=== PATIENT | female | born 1960 | race Asian ===

== ENCOUNTER 2018-07-01 19:00 | Emergency (ER) | payer MEDICAID, OTHER ==
[~2018-07-01] VITALS: Ht 165.1 cm; Wt 81.6 kg
[~2018-07-01 19:00] MED LIST: AMLODIPINE BESY10 MG ORAL; APRESOLINE100 MG ORAL; ASPIRIN EC81 MG ORAL; ATORVASTATIN CA40 MG ORAL; CATAPRES0.3 MG ORAL; CLOPIDOGREL75 MG ORAL; GLIPIZIDE5 MG ORAL; ISOSORBIDE MONO30 M1 PO; JANUVIA100 MG ORAL; LISINOPRIL20 MG ORAL; METFORMIN HCL1000 M1 ORAL; METOPROLOL TAR100 M1 ORAL; NORVASC10 MG ORAL; VITAMIN D400 INTLU ORAL
[2018-07-01] MEDS ORDERED: Metoclopramide 10mg/2ml Inj IVP ONE (19:30)
[2018-07-01] MEDS ORDERED: LORazepam Inj 2mg/ml 1ml IV ONE (19:30)
[2018-07-01] MEDS ORDERED: Acetaminophen 500mg (ES) tab ORAL ONE (19:30)
[2018-07-01 19:44] VITALS: BP 112/50
--- NOTE | 2018-07-01 19:44 | Emergency Room Report ---
History of Present Illness General Chief Complaint: Dizziness Source: Patient, Family Member Present Illness HPI 58-year-old female presents ED for evaluation. Patient plating of dizziness and headache starting today. Headache is dull, frontal, 7 out of 10, nonradiating. Also states she feels lightheaded. Denies nausea or vomiting. Denies chest pain or shortness of breath. Daughter at bedside states that patient had argument with someone at work today and this likely triggered her symptoms. Does have history of anxiety and has presented like this multiple times. Currently does not take medication for anxiety. Denies alcohol or drug use. Denies SI or HI. No other aggravating relieving factors. No other associated symptoms Allergies: Coded Allergies: No Known Allergies (Unverified , 01/20/16) Patient History Past Medical History: DM, HTN Past Surgical History: none Pertinent Family History: none Social History: Denies: smoking, alcohol use, drug use Now: No Immunizations: UTD Reviewed Nursing Documentation: PMH: Agreed; PSxH: Agreed Nursing Documentation-PMH Past Medical History: No History, Except For Hx Cardiac Problems: Yes Hx Hypertension: Yes Hx Diabetes: Yes Hx Cancer: No Hx Gastrointestinal Problems: No Hx Neurological Problems: No Review of Systems All Other Systems: negative except mentioned in HPI Physical Exam Vital Signs Date Time Temp Pulse Resp B/P (MAP) Pulse Ox O2 Delivery O2 Flow Rate FiO2 07/01/18 19:09 97.9 72 17 133/52 98 Room Air Sp02 EP Interpretation: reviewed, normal General Appearance: alert, GCS 15, non-toxic, mild distress Head: normocephalic, atraumatic Eyes: bilateral eye normal inspection, bilateral eye PERRL ENT: hearing grossly normal, normal pharynx, no angioedema, normal voice Neck: full range of motion, supple, no meningismus, supple/symm/no masses Respiratory: chest non-tender, lungs clear, normal breath sounds, speaking full sentences Cardiovascular #1: regular rate, rhythm, no edema Cardiovascular #2: 2+ carotid (R), 2+ carotid (L), 2+ radial (R), 2+ radial (L) , 2+ dorsalis pedis (R), 2+ dorsalis pedis (L) Gastrointestinal: normal bowel sounds, non tender, soft, non-distended, no guarding, no rebound Rectal: deferred Genitourinary: normal inspection, no CVA tenderness Musculoskeletal: back normal, gait/station normal, normal range of motion, non- tender Neurologic: alert, oriented x3, responsive, motor strength/tone normal, sensory intact, speech normal Psychiatric: no suicidal/homicidal ideation, no delusions, anxious Reflexes: 3+ bicep (R), 3+ bicep (L), 3+ tricep (R), 3+ tricep (L), 3+ knee (R) , 3+ knee (L) Skin: normal color, no rash, warm/dry, well hydrated Lymphatic: no adenopathy Medical Decision Making Diagnostic Impression: Primary Impression: Anxiety Additional Impression: Dizziness ER Course Hospital Course 58 yo F presents with dizziness, headache, anxious after argument Differential diagnoses include: migraine, arrythmia, anxiety Clinical course Patient placed on stretcher. on case monitor. After initial history and physical I ordered labs, EKG, IVFs, ativan, reglan and tylenol labs reviewed- no leukocytosis, hemoglobin/hematocrit stable, minimal AG elevation EKG - NSR, no acute ischemic changes interpreted by me On reassessment patient feels better. Discussed findings with daughter. Patient does appear to have episodic anxiety. We'll prescribe low-dose Xanax. Patient has stable vitals, no focal neurological deficits. Safe for discharge or close outpatient follow-up. States she has a PMD we'll provide mental health referrals I. I feel this is a highly complex case requiring extensive working including EKG/Rhythm strip, Xray/CT/US, Blood/urine lab work, repeat exams while in ED, and administration of strong opiates/narcotics for pain control, admission to hospital or close patient follow up. Diagnosis - anxiety, dizziness Stable and discharged to home with Rx Xanax. Followup with PMD/psych. Return to ED if symptoms recur or worse Labs Test 07/01/18 19:20 07/01/18 20:34 White Blood Count 10.1 K/UL (4.8-10.8) Red Blood Count 4.09 M/UL (4.20-5.40) Hemoglobin 12.5 G/DL (12.0-16.0) Hematocrit 36.9 % (37.0-47.0) Mean Corpuscular Volume 90 FL (80-99) Mean Corpuscular Hemoglobin 30.7 PG (27.0-31.0) Mean Corpuscular Hemoglobin Concent 34.0 G/DL (32.0-36.0) Red Cell Distribution Width 11.5 % (11.6-14.8) Platelet Count 228 K/UL (150-450) Mean Platelet Volume 7.4 FL (6.5-10.1) Neutrophils (%) (Auto) 67.7 % (45.0-75.0) Lymphocytes (%) (Auto) 25.6 % (20.0-45.0) Monocytes (%) (Auto) 5.8 % (1.0-10.0) Eosinophils (%) (Auto) 0.5 % (0.0-3.0) Basophils (%) (Auto) 0.5 % (0.0-2.0) Sodium Level 137 MMOL/L (136-145) Potassium Level 3.2 MMOL/L (3.5-5.1) Chloride Level 97 MMOL/L (98-107) Carbon Dioxide Level 20 MMOL/L (21-32) Anion Gap 20 mmol/L (5-15) Blood Urea Nitrogen 22 mg/dL (7-18) Creatinine 1.0 MG/DL (0.55-1.30) Estimat Glomerular Filtration Rate 56.9 mL/min (>60) Glucose Level 186 MG/DL (74-106) Calcium Level 9.7 MG/DL (8.5-10.1) Total Bilirubin 0.2 MG/DL (0.2-1.0) Aspartate Amino Transf (AST/SGOT) 26 U/L (15-37) Alanine Aminotransferase (ALT/SGPT) 40 U/L (12-78) Alkaline Phosphatase 57 U/L (46-116) Total Protein 7.6 G/DL (6.4-8.2) Albumin 4.0 G/DL (3.4-5.0) Globulin 3.6 g/dL Albumin/Globulin Ratio 1.1 (1.0-2.7) Salicylates Level 4.1 ug/mL (2.8-20) Acetaminophen Level < 2 MCG/ML (10-30) Serum Alcohol 106 mg/dL Urine Opiates Screen Negative (NEGATIVE) Urine Barbiturates Screen Negative (NEGATIVE) Phencyclidine (PCP) Screen Negative (NEGATIVE) Urine Amphetamines Screen Negative (NEGATIVE) Urine Benzodiazepines Screen Negative (NEGATIVE) Urine Cocaine Screen Negative (NEGATIVE) Urine Marijuana (THC) Screen Negative (NEGATIVE) EKG Diagnostic Results Rate: normal Rhythm: NSR ST Segments: no acute changes ASA given to the pt in ED: No Rhythm Strip Diag. Results EP Interpretation: yes Rhythm: NSR, no PVC's, no ectopy Last Vital Signs Date Time Temp Pulse Resp B/P (MAP) Pulse Ox O2 Delivery O2 Flow Rate FiO2 07/01/18 19:09 97.9 72 17 133/52 98 Room Air Status: improved Disposition: HOME, SELF-CARE Condition: Stable Scripts Alprazolam* (XANAX*) 0.25 Mg Tablet 0.25 MG ORAL TID PRN for For Anxiety, #10 TAB Prov: Mateo Kerns MD 07/01/18 Mateo Kerns MD Jul 01, 2018 19:44
[2018-07-01 19:55] LABS: BASOPHILS % (AUTO) 0.5 % (0.0-2.0); EOSINOPHILS % (AUTO) 0.5 % (0.0-3.0); HEMATOCRIT 36.9 % (37.0-47.0); HEMOGLOBIN 12.5 G/DL (12.0-16.0); LYMPHOCYTES % (AUTO) 25.6 % (20.0-45.0); MEAN CORPUSCULAR VOLUME 90 FL (80-99); MONOCYTES % (AUTO) 5.8 % (1.0-10.0); NEUTROPHILS % (AUTO) 67.7 % (45.0-75.0); PLATELET COUNT 228 K/UL (150-450); RED BLOOD COUNT 4.09 M/UL (4.20-5.40); RED CELL DISTRIBUTION WIDTH 11.5 % (11.6-14.8); WHITE BLOOD COUNT 10.1 K/UL (4.8-10.8)
[2018-07-01 20:07] LABS: ANION GAP 20 mmol/L (5-15); BLOOD UREA NITROGEN 22 mg/dL (7-18); CALCIUM 9.7 MG/DL (8.5-10.1); CARBON DIOXIDE 20 MMOL/L (21-32); CHLORIDE 97 MMOL/L (98-107); POTASSIUM 3.2 MMOL/L (3.5-5.1); SODIUM 137 MMOL/L (136-145)
[2018-07-01 20:11] LABS: ALANINE AMINOTRANSFERASE 40 U/L (12-78); ALBUMIN/GLOBULIN RATIO 1.1 (1.0-2.7); ALKALINE PHOSPHATASE 57 U/L (46-116); ASPARTATE AMINO TRANSFERASE 26 U/L (15-37); BILIRUBIN,TOTAL 0.2 MG/DL (0.2-1.0)
[2018-07-01] MEDS ORDERED: ALPRAZOLAM0.25 MG ORAL (20:42)
[2018-07-01 21:20] VITALS: BP 112/50
== END 2018-07-01 21:18 | disposition home or self-care (01) ==
LOC: EMR 19:21
DX: F41.9 Anxiety disorder, unspecified (principal); R42 Dizziness and giddiness; I10 Essential (primary) hypertension; E11.9 Type 2 diabetes mellitus without complications
CPT/HCPCS: 36415; 80053; 80307; 80329; 85025; 96374; 96375; 99284; J2765; J7040; 82962; 93005

== ENCOUNTER 2018-11-08 20:10 | Emergency (ER) | payer MEDICAID ==
[~2018-11-08] VITALS: Ht 157.5 cm; Wt 70.3 kg
[~2018-11-08 20:10] MED LIST changes: +ALPRAZOLAM0.25 MG ORAL
[2018-11-08 20:23] VITALS: BP 172/71
--- NOTE | 2018-11-08 20:30 | NUR ---
ED Nurse Note: Patient walked into ED c/o rash on her back and abdomen, itching for 3 days.
[2018-11-08] MEDS ORDERED: DIPHENHYDRAMINE25 M1 ORAL (20:32)
[2018-11-08] MEDS ORDERED: PREDNISONE20 MG ORAL (20:32)
[2018-11-08 20:39] VITALS: BP 172/71
--- NOTE | 2018-11-08 20:42 | NUR ---
ER DISCHARGE NOTE: Patient is cleared to be discharged per ERMD DR HALE, pt is aox4, on room air, with stable vital signs. pt was given dc and prescription instructions, pt was able to verbalize understanding, pt id band removed without complications. pt is able to ambulate with steady gait. pt took all belongings.
--- NOTE | 2018-11-08 22:24 | Emergency Room Report ---
History of Present Illness General Chief Complaint: Skin Rash/Abscess Source: Patient Present Illness Allergies: Coded Allergies: No Known Allergies (Unverified , 01/20/16) Nursing Documentation-H Past Medical History: No History, Except For Hx Cardiac Problems: Yes Hx Hypertension: Yes Hx Diabetes: Yes Hx Cancer: No Hx Gastrointestinal Problems: No Hx Neurological Problems: No Physical Exam Vital Signs Date Time Temp Pulse Resp B/P (MAP) Pulse Ox O2 Delivery O2 Flow Rate FiO2 11/08/18 20:23 98.2 76 15 172/71 (104) 96 Room Air Medical Decision Making Diagnostic Impression: Primary Impression: Allergic reaction Last Vital Signs Date Time Temp Pulse Resp B/P (MAP) Pulse Ox O2 Delivery O2 Flow Rate FiO2 11/08/18 20:39 98.2 15 172/71 96 Room Air 11/08/18 20:23 76 Status: improved Disposition: HOME, SELF-CARE Condition: Stable Scripts Diphenhydramine Hcl* (DIPHENHYDRAMINE HCL*) 25 Mg Capsule 25 MG ORAL Q6H PRN for Itching for 5 Days, #30 CAP 0 Refills Prov: Mateo Kerns MD 11/08/18 Prednisone* (PREDNISONE*) 20 Mg Tablet 40 MG ORAL DAILY, #10 TAB Prov: Mateo Kerns MD 11/08/18 Referrals: Anuja Kat [facility] Patient Instructions: Pruritus Mateo Kerns MD Nov 08, 2018 22:24
== END 2018-11-08 20:39 | disposition home or self-care (01) ==
LOC: EMR 20:29
DX: T78.40XA Allergy, unspecified, initial encounter (principal); X58.XXXA Exposure to other specified factors, initial encounter; E11.9 Type 2 diabetes mellitus without complications; I10 Essential (primary) hypertension
CPT/HCPCS: 99282

== ENCOUNTER 2019-12-15 12:33 | Inpatient (IN) | payer MEDICAID ==
[~2019-12-15] VITALS: Ht 157.5 cm; Wt 70.2 kg
[~2019-12-15 12:33] MED LIST changes: +DIPHENHYDRAMINE25 M1 ORAL; +PREDNISONE20 MG ORAL
[2019-12-15] MEDS ORDERED: Enalaprilat 2.5mg/2ml Inj IV ONE (12:45)
--- NOTE | 2019-12-15 12:45 | NUR ---
ED Nurse Note: Pt ambulted to ED c/o dizziness and nausea onset yesterday. Reports retching and weakness, denies vomiting. Pt is AOx4 noted with generalized weakness, speaks in ukrainian, placed on bed, hooked to activities concierge.
--- NOTE | 2019-12-15 12:58 | NUR ---
ED Nurse Note: Latest BP: 166/55, HR 64.
--- NOTE | 2019-12-15 13:07 | NUR ---
ED Nurse Note: Pt taken to CT.
[2019-12-15 13:08] VITALS: BP 205/78
--- NOTE | 2019-12-15 13:16 | NUR ---
ED Nurse Note: pt returned from CT on stable condition.
[2019-12-15 13:19] LABS: BASOPHILS % (AUTO) 0.7 % (0.0-2.0); EOSINOPHILS % (AUTO) 1.9 % (0.0-3.0); HEMATOCRIT 44.2 % (37.0-47.0); LYMPHOCYTES % (AUTO) 28.7 % (20.0-45.0); MEAN CORPUSCULAR VOLUME 90 FL (80-99); MONOCYTES % (AUTO) 7.9 % (1.0-10.0); NEUTROPHILS % (AUTO) 60.8 % (45.0-75.0); PLATELET COUNT 241 K/UL (150-450); RED BLOOD COUNT 4.92 M/UL (4.20-5.40); WHITE BLOOD COUNT 6.8 K/UL (4.8-10.8)
[2019-12-15 13:35] LABS: ANION GAP 7 mmol/L (5-15); BLOOD UREA NITROGEN 11 mg/dL (7-18); CALCIUM 9.4 MG/DL (8.5-10.1); CARBON DIOXIDE 30 MMOL/L (21-32); CHLORIDE 100 MMOL/L (98-107); CREATININE 0.8 MG/DL (0.55-1.30); POTASSIUM 3.7 MMOL/L (3.5-5.1); SODIUM 137 MMOL/L (136-145)
[2019-12-15 13:48] LABS: ALANINE AMINOTRANSFERASE 43 U/L (12-78); ALBUMIN 3.8 G/DL (3.4-5.0); ALKALINE PHOSPHATASE 73 U/L (46-116); ASPARTATE AMINO TRANSFERASE 24 U/L (15-37); BILIRUBIN,TOTAL 0.4 MG/DL (0.2-1.0)
--- NOTE | 2019-12-15 13:55 | Diagnostic Imaging Report ---
Indications: Recent onset of nausea, retching, vertigo Technique: Spiral acquisitions obtained through the brain. Angled axial and coronal 5 x 5 mm slices were reconstructed. Total dose length product 992 mGycm. CTDI vol(s) 53 mGy. Dose reduction achieved using automated exposure control Comparison: None. Findings: There is mild age-related enlargement of the ventricles and extra axial CSF spaces. There is minimal periventricular deep white matter low-attenuation, consistent with chronic microvascular ischemic changes. Visualized orbits and sinuses are unremarkable. Normal farrar-white differentiation. Intact calvarium. The mastoids are clear. Visualized sinuses are unremarkable. Impression: Mild age-related changes. Negative for acute intracranial bleed or mass effect. The CT scanner at [facility] is accredited by the [employer] and the scans are performed using protocols designed to limit radiation exposure to as low as reasonably achievable to attain images of sufficient resolution adequate for diagnostic evaluation.
[2019-12-15 14:08] LABS: BILIRUBIN, URINE NEGATIVE (NEGATIVE); COLOR,URINE PALE YELLOW; GLUCOSE, URINE (UA) 4+ (NEGATIVE); KETONES,URINE NEGATIVE (NEGATIVE); LEUKOCYTE ESTERASE ,URINE NEGATIVE (NEGATIVE); NITRITE,URINE NEGATIVE (NEGATIVE); PH,URINE 7 (4.5-8.0); PROTEIN,URINE 2+ (NEGATIVE); UROBILINOGEN,URINE NORMAL MG/DL (0.0-1.0)
[2019-12-15 14:09] LABS: APPEARANCE,URINE CLEAR
[2019-12-15] MEDS ORDERED: Aspirin Baby 81mg ORAL ONE (15:00)
[2019-12-15 15:12] VITALS: BP 143/67
[2019-12-15] MEDS ORDERED: Meclizine 25mg tab ORAL ONE (15:15)
--- NOTE | 2019-12-15 15:15 | Emergency Room Report ---
History of Present Illness General Chief Complaint: Dizziness Source: Patient (Channing Ellison MD) Present Illness HPI Patient is a 59-year-old female present after increased dizziness and generalized weakness. Started yesterday. Reports of increased spinning sensation. Had not been having any chest discomfort or shortness of breath. Prior history of type 2 diabetes. Denies prior cardiac conditions. Associated nausea without any vomiting. Denies any recent trauma. No associated extremity weakness. Has been having increased spinning and nausea. No prior history of CVA. Had recently been had not been having any fever. (Channing Ellison MD) Allergies: Coded Allergies: No Known Allergies (Unverified , 01/20/16) COVID-19 Screening Contact w/high risk pt: No Experienced COVID-19 symptoms?: No COVID-19 Testing performed QC MANAGER: No (Channing Ellison MD) Patient History Past Medical History: see triage record Now: No Reviewed Nursing Documentation: PMH: Agreed; PSxH: Agreed (Channing Ellison MD) Nursing Documentation-PMH Hx Cardiac Problems: Yes Hx Hypertension: Yes Hx Diabetes: Yes Hx Cancer: No Hx Gastrointestinal Problems: No Hx Neurological Problems: No (Channing Ellison MD) Review of Systems All Other Systems: negative except mentioned in HPI (Channing Ellison MD) Physical Exam Vital Signs Date Time Temp Pulse Resp B/P (MAP) Pulse Ox O2 Delivery O2 Flow Rate FiO2 12/15/19 12:34 98.1 65 19 205/78 (120) 94 Room Air Sp02 EP Interpretation: reviewed, normal General Appearance: normal inspection, well appearing, no apparent distress, alert, GCS 15, non-toxic Head: normocephalic, atraumatic ENT: normal ENT inspection, hearing grossly normal, normal voice Neck: normal inspection, full range of motion, supple, no bony tend Respiratory: normal inspection, lungs clear, normal breath sounds, no respiratory distress, no retraction, no wheezing Cardiovascular #1: regular rate, rhythm, no edema Gastrointestinal: normal inspection, normal bowel sounds, non tender, soft, no guarding, no hernia Genitourinary: no CVA tenderness Musculoskeletal: normal inspection, back normal, normal range of motion Neurologic: alert, motor strength/tone normal, election assistant III-XII nml as tested, oriented x3, responsive, speech normal, normal inspection Psychiatric: normal inspection, judgement/insight normal, mood/affect normal (Channing Ellison MD) Medical Decision Making Diagnostic Impression: Primary Impression: Uncontrolled diabetes mellitus Additional Impression: Dizziness ER Course Patient presented for dizziness. Differential diagnosis include was not limited to CVA, peripheral vertigo, presyncope among others. Because of complexity of patient's case laboratory tests and imaging studies were ordered. EKG interpreted by me showed normal sinus rhythm with a rate of 62 with flattening to the T waves in the lateral and high lateral areas. Patient was given aspirin as well as medications for her nausea. Patient started on IV fluids due to high blood sugar. Patient reports being compliant with her medications. I did discuss the patient's case with her daughter who states that patient had been compliant with medications and was having no chest discomfort or palpitations at this time. Given the patient's abnormal EKG I feel the patient requires further inpatient work-up. Patient was endorsed to Dr. Hartley pending authorization and final disposition Labs Test 12/15/19 12:55 12/15/19 13:55 White Blood Count 6.8 K/UL (4.8-10.8) Red Blood Count 4.92 M/UL (4.20-5.40) Hemoglobin 15.0 G/DL (12.0-16.0) Hematocrit 44.2 % (37.0-47.0) Mean Corpuscular Volume 90 FL (80-99) Mean Corpuscular Hemoglobin 30.4 PG (27.0-31.0) Mean Corpuscular Hemoglobin Concent 33.8 G/DL (32.0-36.0) Red Cell Distribution Width 12.0 % (11.6-14.8) Platelet Count 241 K/UL (150-450) Mean Platelet Volume 7.5 FL (6.5-10.1) Neutrophils (%) (Auto) 60.8 % (45.0-75.0) Lymphocytes (%) (Auto) 28.7 % (20.0-45.0) Monocytes (%) (Auto) 7.9 % (1.0-10.0) Eosinophils (%) (Auto) 1.9 % (0.0-3.0) Basophils (%) (Auto) 0.7 % (0.0-2.0) Prothrombin Time 10.9 SEC (9.30-11.50) Prothromb Time International Ratio 1.0 (0.9-1.1) Activated Partial Thromboplast Time 28 SEC (23-33) D-Dimer 0.25 mg/L FEU (0.00-0.49) Sodium Level 137 MMOL/L (136-145) Potassium Level 3.7 MMOL/L (3.5-5.1) Chloride Level 100 MMOL/L (98-107) Carbon Dioxide Level 30 MMOL/L (21-32) Anion Gap 7 mmol/L (5-15) Blood Urea Nitrogen 11 mg/dL (7-18) Creatinine 0.8 MG/DL (0.55-1.30) Estimat Glomerular Filtration Rate > 60 mL/min (>60) Glucose Level 337 MG/DL (74-106) Calcium Level 9.4 MG/DL (8.5-10.1) Total Bilirubin 0.4 MG/DL (0.2-1.0) Aspartate Amino Transf (AST/SGOT) 24 U/L (15-37) Alanine Aminotransferase (ALT/SGPT) 43 U/L (12-78) Alkaline Phosphatase 73 U/L (46-116) Troponin I 0.000 ng/mL (0.000-0.056) Total Protein 7.5 G/DL (6.4-8.2) Albumin 3.8 G/DL (3.4-5.0) Globulin 3.7 g/dL Albumin/Globulin Ratio 1.0 (1.0-2.7) Thyroid Stimulating Hormone (TSH) 0.409 uiU/mL (0.358-3.740) Urine Color Pale yellow Urine Appearance Clear Urine pH 7 (4.5-8.0) Urine Specific [place] 1.010 (1.005-1.035) Urine Protein 2+ (NEGATIVE) Urine Glucose (UA) 4+ (NEGATIVE) Urine Ketones Negative (NEGATIVE) Urine Blood 1+ (NEGATIVE) Urine Nitrite Negative (NEGATIVE) Urine Bilirubin Negative (NEGATIVE) Urine Urobilinogen Normal MG/DL (0.0-1.0) Urine Leukocyte Esterase Negative (NEGATIVE) Urine RBC 2-4 /HPF (0 - 2) Urine WBC 2-4 /HPF (0 - 2) Urine Squamous Epithelial Cells Occasional /LPF Urine Bacteria Few /HPF (NONE) (Channing Ellison MD) ER Course Assumed care of the patient from the previous provider at approximately 1500 hrs. Please refer to initial note for full history and physical exam. Briefly, 59-year-old female history of diabetes hypertension presented with dizziness and weakness. Nonspecific T wave changes on lateral leads on EKG and slightly prolonged QTC. Patient received aspirin and magnesium. Arrives with elevated blood pressures greater than 200 systolic which were treated and have improved. Blood sugar was elevated and the patient received insulin. She will be admitted for uncontrolled diabetes, hypertensive urgency, EKG changes. Stable for telemetry. Admitted to panel physician, Dr. Sam. (Elio Hartley MD) EKG Diagnostic Results Rate: normal - 62 Rhythm: NSR ST Segments: other - Nonspecific inferior ST changes (Channing Ellison MD) Last Vital Signs Date Time Temp Pulse Resp B/P (MAP) Pulse Ox O2 Delivery O2 Flow Rate FiO2 12/15/19 13:14 166/55 12/15/19 13:08 98.1 19 94 Room Air 12/15/19 13:08 65 Status: unchanged (Channing Ellison MD) Disposition: ADMITTED INPATIENT Condition: Stable Referrals: [facility]ERR[facility] (PCP) Channing Ellison MD Dec 15, 2019 15:15 Elio Hartley MD Dec 15, 2019 15:57
--- NOTE | 2019-12-15 15:30 | NUR ---
ED Nurse Note: may offfer snacks to pt per Dr. Ellison.
[2019-12-15] MEDS ORDERED: ISOSORBIDE MONO30 M1 PO (16:17)
[2019-12-15] MEDS ORDERED: HYDROCHLOROTHIA25 MG ORAL (16:17)
[2019-12-15] MEDS ORDERED: LISINOPRIL20 MG ORAL (16:17)
[2019-12-15] MEDS ORDERED: ATORVASTATIN CA40 MG ORAL (16:17)
[2019-12-15] MEDS ORDERED: ASPIRIN-LOW81 MG ORAL (16:17)
[2019-12-15] MEDS ORDERED: NORMODYNE100 MG ORAL (16:17)
[2019-12-15] MEDS ORDERED: GLUCOTROL5 MG ORAL (16:17)
[2019-12-15] MEDS ORDERED: JANUVIA100 MG ORAL (16:17)
[2019-12-15] MEDS ORDERED: Morphine Sulfate 2mg/ml Inj(IV/IM USE ONLY) IVP PRN (17:00)
[2019-12-15] MEDS ORDERED: Nitroglycerin Subl 0.4mg tab SL PRN (17:00)
--- NOTE | 2019-12-15 17:02 | History & Physical ---
History and Physical History & Physicial IM/PULM H&P CC: Dizziness and CP HPI: 59 F smoker h/o DM2, HTN, HL p/w sudden onset dizziness last night and vague chest discomfort. In the ER she was AFVSS x for elevated BP on RA, lab w/ u was unremarkable but ECG demonstrated anterolateral TW changes. Her dizziness has resolved, no further CP, no SOB, no cough, no wheezing, no FC, no NVDC, no abd pain or urinary complaints. She recieved ASA and IV Enalapril in the ER. 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 PMH: HTN, HL, DM2 PSH: None ALL: NKDA Active Scripts Medications Dose Route/Sig Max Daily Dose Days Date Category Atorvastatin Calcium* (Atorvastatin Calcium) 40 Mg Tablet 40 Mg ORAL BEDTIME 12/15/19 Reported Januvia (Sitagliptin Phosphate) 100 Mg Tablet 100 Mg ORAL DAILY 12/15/19 Reported Labetalol HCl 100 Mg Tablet 100 Mg ORAL EVERY 12 HOURS 12/15/19 Reported Hydrochlorothiazide* (Hydrochlorothiazide) 25 Mg Tablet 25 Mg ORAL DAILY 12/15/19 Reported Lisinopril* (Lisinopril) 20 Mg Tablet 20 Mg ORAL DAILY 12/15/19 Reported Aspirin EC (Aspirin) 81 Mg Tablet.dr 81 Mg ORAL DAILY 12/15/19 Reported Isosorbide Mononitrate Er (Isosorbide Mononitrate) 30 Mg Tab.er.24h 30 Mg PO 12/15/19 Reported Glucotrol* (Glipizide) 5 Mg Tablet 5 Mg ORAL ACBREAKFAST 12/15/19 Reported Diphenhydramine Hcl* (Diphenhydramine HCl) 25 Mg Capsule 25 Mg ORAL Q6H PRN 5 11/08/18 Rx Prednisone* (Prednisone) 20 Mg Tablet 40 Mg ORAL DAILY 11/08/18 Rx Xanax* (Alprazolam) 0.25 Mg Tablet 0.25 Mg ORAL TID PRN 07/01/18 Rx Norvasc (Amlodipine Besylate) 10 Mg Tablet 10 Mg ORAL DAILY 02/23/16 Rx Metformin Hcl* (Metformin HCl) 1,000 Mg Tablet 1,000 Mg ORAL BID 30 02/23/16 Rx Januvia (Sitagliptin Phosphate) 100 Mg Tablet 100 Mg ORAL DAILY 02/23/16 Rx SHX: + 1 PPD tob, no drugs or EtOH, from [place], , supportive family FHX: N/C ROS: Negative other than HPI PE: Last 24 Hour Vital Signs Date Time Temp Pulse Resp B/P (MAP) Pulse Ox O2 Delivery O2 Flow Rate FiO2 12/15/19 15:12 98.1 72 21 143/67 98 Room Air 12/15/19 13:14 166/55 12/15/19 13:08 98.1 19 205/78 94 Room Air 12/15/19 13:08 65 19 Room Air 12/15/19 12:34 98.1 65 19 205/78 (120) 94 Room Air NAD, AAOx3 NC/AT, OPC c MMM Supple s LAD or JVD CTA s W/R/R RRR s M/R/G S/NT/ND c NABS No C/C/E CT HEAD: Impression: Mild age-related changes. Negative for acute intracranial bleed or mass effect. ECF: NSR @ 62, I,II ST dep, V1-V2 ST elevation Laboratory Tests Test 12/15/19 12:55 12/15/19 13:55 White Blood Count 6.8 K/UL (4.8-10.8) Red Blood Count 4.92 M/UL (4.20-5.40) Hemoglobin 15.0 G/DL (12.0-16.0) Hematocrit 44.2 % (37.0-47.0) Mean Corpuscular Volume 90 FL (80-99) Mean Corpuscular Hemoglobin 30.4 PG (27.0-31.0) Mean Corpuscular Hemoglobin Concent 33.8 G/DL (32.0-36.0) Red Cell Distribution Width 12.0 % (11.6-14.8) Platelet Count 241 K/UL (150-450) Mean Platelet Volume 7.5 FL (6.5-10.1) Neutrophils (%) (Auto) 60.8 % (45.0-75.0) Lymphocytes (%) (Auto) 28.7 % (20.0-45.0) Monocytes (%) (Auto) 7.9 % (1.0-10.0) Eosinophils (%) (Auto) 1.9 % (0.0-3.0) Basophils (%) (Auto) 0.7 % (0.0-2.0) Prothrombin Time 10.9 SEC (9.30-11.50) Prothromb Time International Ratio 1.0 (0.9-1.1) Activated Partial Thromboplast Time 28 SEC (23-33) D-Dimer 0.25 mg/L FEU (0.00-0.49) Sodium Level 137 MMOL/L (136-145) Potassium Level 3.7 MMOL/L (3.5-5.1) Chloride Level 100 MMOL/L (98-107) Carbon Dioxide Level 30 MMOL/L (21-32) Anion Gap 7 mmol/L (5-15) Blood Urea Nitrogen 11 mg/dL (7-18) Creatinine 0.8 MG/DL (0.55-1.30) Estimat Glomerular Filtration Rate > 60 mL/min (>60) Glucose Level 337 MG/DL (74-106) H Calcium Level 9.4 MG/DL (8.5-10.1) Total Bilirubin 0.4 MG/DL (0.2-1.0) Aspartate Amino Transf (AST/SGOT) 24 U/L (15-37) Alanine Aminotransferase (ALT/SGPT) 43 U/L (12-78) Alkaline Phosphatase 73 U/L (46-116) Troponin I 0.000 ng/mL (0.000-0.056) Total Protein 7.5 G/DL (6.4-8.2) Albumin 3.8 G/DL (3.4-5.0) Globulin 3.7 g/dL Albumin/Globulin Ratio 1.0 (1.0-2.7) Thyroid Stimulating Hormone (TSH) 0.409 uiU/mL (0.358-3.740) Urine Color Pale yellow Urine Appearance Clear Urine pH 7 (4.5-8.0) Urine Specific [place] 1.010 (1.005-1.035) Urine Protein 2+ (NEGATIVE) H Urine Glucose (UA) 4+ (NEGATIVE) H Urine Ketones Negative (NEGATIVE) Urine Blood 1+ (NEGATIVE) H Urine Nitrite Negative (NEGATIVE) Urine Bilirubin Negative (NEGATIVE) Urine Urobilinogen Normal MG/DL (0.0-1.0) Urine Leukocyte Esterase Negative (NEGATIVE) Urine RBC 2-4 /HPF (0 - 2) H Urine WBC 2-4 /HPF (0 - 2) Urine Squamous Epithelial Cells Occasional /LPF Urine Bacteria Few /HPF (NONE) ASSESSMENT: * Dizziness * Atypical CP with ECG changes * DM2 with elevated BS * HTN * HL * Likely CAD and CHF * Current daily smoker PLAN: * Admit to TELE * R/O ACS with serial ECG/trop * TTE * Cardiology eval * ASA * Continue Norvasc, HCTZ, Imdur, Atorva, Lisin, Labetolol * PRN NTG * PRN MSO4 * Carotid duplex * Neuro eval (if available) * Check orthostatics * Continue Glipizide, Januvia, Hold MFM, + SSI, ENDO eval * Monitor volumes and renal function * DVT Px: Hep SQ Diego Patterson MD, FCCP Diego Patterson MD Dec 15, 2019 17:02
[2019-12-15 17:09] VITALS: BP 144/58
--- NOTE | 2019-12-15 17:15 | NUR ---
ED Nurse Note: US tech at bedside.
--- NOTE | 2019-12-15 17:30 | NUR ---
ED Nurse Note: dinner tray offered to pt.
--- NOTE | 2019-12-15 18:06 | Diagnostic Imaging Report ---
EXAM: US Pelvis Transabdominal, Complete CLINICAL HISTORY: PAIN TECHNIQUE: Real-time complete transabdominal pelvic ultrasound with image documentation. COMPARISON: No relevant prior studies available. FINDINGS: Uterus/cervix: Study limited due to uterine retroversion and uterine atrophy, limiting uterine evaluation. Trace cervical fluid of uncertain significance, correlate with pelvic exam and consider outpatient MRI pelvis without and with IV contrast to further characterize poorly evaluated uterus. Uterus 6.8 x 5.4 x 4 cm Normal endometrial stripe thickness. No myometrial mass. Right ovary: Study also limited due to nonvisualization of the ovaries bilaterally. Left ovary: See above. Free fluid: No free fluid. Bladder: Unremarkable as visualized. Wall is normal thickness for degree of distention. IMPRESSION: 1. Study limited due to uterine retroversion and uterine atrophy, limiting uterine evaluation. 2. Study also limited due to nonvisualization of the ovaries bilaterally. 3. Trace cervical fluid of uncertain significance, correlate with pelvic exam and consider outpatient MRI pelvis without and with IV contrast to further characterize poorly evaluated uterus. 4. Otherwise no acute abnormality definitively identified to account for patient presentation.
--- NOTE | 2019-12-15 18:07 | Diagnostic Imaging Report ---
EXAM: US Pelvis Transvaginal CLINICAL HISTORY: PAIN TECHNIQUE: Real-time transvaginal pelvic ultrasound with image documentation. Transvaginal imaging was used for better evaluation of the endometrium and adnexa. COMPARISON: No relevant prior studies available. FINDINGS: Uterus/cervix: Study limited due to uterine retroversion and uterine atrophy, limiting uterine evaluation. Trace cervical fluid of uncertain significance, correlate with pelvic exam and consider outpatient MRI pelvis without and with IV contrast to further characterize poorly evaluated uterus. Uterus 6.8 x 5.4 x 4 cm Normal endometrial stripe thickness. No myometrial mass. Right ovary: Study also limited due to nonvisualization of the ovaries bilaterally. Left ovary: See above. Free fluid: No free fluid. Bladder: Empty bladder which cannot be evaluated with this probe. IMPRESSION: 1. Study limited due to uterine retroversion and uterine atrophy, limiting uterine evaluation. 2. Study also limited due to nonvisualization of the ovaries bilaterally. 3. Trace cervical fluid of uncertain significance, correlate with pelvic exam and consider outpatient MRI pelvis without and with IV contrast to further characterize poorly evaluated uterus. 4. Otherwise no acute abnormality definitively identified to account for patient presentation.
--- NOTE | 2019-12-15 18:11 | NUR ---
ED Nurse Note: US tech at bedside for carotid us.
--- NOTE | 2019-12-15 18:23 | NUR ---
ED Nurse Note: report given to Radhika RN in Telemetry Unit.
--- NOTE | 2019-12-15 18:46 | Diagnostic Imaging Report ---
EXAM: US Duplex Bilateral Extracranial Arteries CLINICAL HISTORY: DIZZY TECHNIQUE: Real-time duplex ultrasound scan of the extracranial arteries integrating B-mode two-dimensional vascular structure, Doppler spectral analysis and color flow Doppler imaging. COMPARISON: No relevant prior studies available. FINDINGS: Right common carotid artery: No occlusion or significant stenosis on color flow and spectral Doppler imaging. Right internal carotid artery: There is some plaque in the bilateral carotid bifurcations extending to the proximal internal and external carotid arteries. Right external carotid artery: See above. Right vertebral artery: Antegrade flow. Right ICA/CCA ratio: Within normal limits. Left common carotid artery: No occlusion or significant stenosis on color flow and spectral Doppler imaging. Left internal carotid artery: No occlusion or significant stenosis. Left external carotid artery: Peak systolic velocity in the left external carotid artery is 173 cm/s suggesting some narrowing. Left vertebral artery: Antegrade flow. Left ICA/CCA ratio: Within normal limits. Lymph nodes: Unremarkable. No lymphadenopathy. CAROTID STENOSIS REFERENCE USING SRU CRITERIA: Mild - <50% stenosis. ICA PSV is less than 125 cm/second and plaque or intimal thickening is visible. Moderate - 50-69% stenosis. ICA PSV is 125 to 230 cm/second and plaque is visible. Severe - 70-94% stenosis. ICA PSV is more than 230 cm/second and visible plaque with lumen narrowing is seen. Near occlusion - 95-99% stenosis. ICA PSV is variable and significant plaque with luminal narrowing is seen. Occluded - 100% stenosis. No flow identified. IMPRESSION: No hemodynamically significant stenosis in the carotid arteries. Antegrade flow in the vertebral arteries.
--- NOTE | 2019-12-15 18:48 | NUR ---
ED Nurse Note: Pt was transferred to Telemetry Unit under the care of Dr. Sam. Report given to BRIGHT Garrido in Tele Unit. All belongings sent with pt, pt was transferred on stable condition. Family aware of pt rtransfer.
--- NOTE | 2019-12-15 18:50 | NUR ---
NURSE NOTES: Patient received from ED, report from Rae NOVOA. Transferred to bed. new car inspector placed. Side rails up x 2. Bed alarm on. Call light within reach. Addendum: 12/15/19 at 1942 by Radhika García RN NURSE NOTES: Belongings checked.
--- NOTE | 2019-12-15 19:00 | NUR ---
NURSE NOTES: Received report from Radhika RN. Patient is alert and oriented x 4; patient is mostly Koran speaking but understand Estonian and is able to make needs known. Patient was awake comfortably in semi-fowlers. No signs of distress or pain noted, but is reporting dizziness. Patients IV site at right hand 20g S/L; Flushed and patent. No erythema or bleeding noted. Patient is on room air sating at 95%. Patients bed is in lowest position, brakes in place, and Call light with in reach. Side rails up x3 and padded. Patient is in yellow gown and socks for fall precaution, bed alarm is on, and educated to use call light to call for assistance. Will notify Dr. Sam of patients arrival on and of admission orders places by Dr. Patterson. Will continue to monitor.
[2019-12-15 20:00] VITALS: BP 154/60
[2019-12-15] MEDS ORDERED: LANTUS SOL100 UNIT/1 SUBQ (20:27)
--- NOTE | 2019-12-15 20:36 | NUR ---
NURSE NOTES: Notified Dr. Louis of patient arrival on and of Dr. Patterson's admission orders placed for the patient. Dr. aSm would not like to add orders at this time.
--- NOTE | 2019-12-15 21:00 | NUR ---
NURSE NOTES: Called pharmacy and spoke to Hola regarding patients request to try to use the Nicotine patch tomorrow instead of tonight. Pharmacy changed the patient Nicotine Patch to 0:900.
[2019-12-15] MEDS: Atorvastatin 20mg tab ORAL SCH (21:43)
[2019-12-15] MEDS: NovoLOG Insulin Flexpen SUBQ SCH (21:48)
[2019-12-16] VITALS: BP 165/65
[2019-12-16 04:00] VITALS: BP 166/64
--- NOTE | 2019-12-16 04:00 | NUR ---
NURSE NOTES: 12 lead EKG performed per Dr. Rosario Addendum: 12/16/19 at 0617 by Lucero De La O RN NURSE NOTES: 12 lead EKG performed per Dr. Yesenia watson
[2019-12-16 05:42] LABS: BASOPHILS % (AUTO) 0.7 % (0.0-2.0); EOSINOPHILS % (AUTO) 3.2 % (0.0-3.0); HEMATOCRIT 43.5 % (37.0-47.0); HEMOGLOBIN 14.6 G/DL (12.0-16.0); MEAN CORPUSCULAR VOLUME 90 FL (80-99); MONOCYTES % (AUTO) 7.6 % (1.0-10.0); NEUTROPHILS % (AUTO) 47.5 % (45.0-75.0); PLATELET COUNT 220 K/UL (150-450); RED BLOOD COUNT 4.82 M/UL (4.20-5.40); RED CELL DISTRIBUTION WIDTH 11.6 % (11.6-14.8)
[2019-12-16 05:43] LABS: ANION GAP 9 mmol/L (5-15); BLOOD UREA NITROGEN 14 mg/dL (7-18); CALCIUM 9.1 MG/DL (8.5-10.1); CARBON DIOXIDE 29 MMOL/L (21-32); CHLORIDE 103 MMOL/L (98-107); CREATININE 0.8 MG/DL (0.55-1.30); POTASSIUM 3.6 MMOL/L (3.5-5.1); SODIUM 140 MMOL/L (136-145)
[2019-12-16] MEDS: NovoLOG Insulin Flexpen SUBQ SCH ×4 (05:47→20:43)
[2019-12-16] MEDS: GlipiZIDE 5mg tab ORAL SCH (05:47)
--- NOTE | 2019-12-16 07:16 | NUR ---
NURSE HAND-OFF REPORT: Important Events on Shift: Patient was admitted. Patient Status: Stable Diet: Cardio Diet Pending Orders: [] Pending Results/Labs:[] Pending MD notification:[] Latest Vital Signs: Temperature 97.9 , Pulse 75 , B/P 166 /64 , Respiratory Rate 20 , O2 SAT 95 , Room Air, O2 Flow Rate . Vital Sign Comment: [] EKG Rhythm: Sinus Rhythm Rhythm change?: N MD Notified?: - MD Response: Latest Lim Fall Score: 55 Fall Risk: High Risk Safety Measures: Call light Within Reach, Bed Alarm Zone 1, Side Rails Side Rails x2, Bed position Low and Locked. Fall Precautions: Yellow Socks Yellow Gown Door Sign Patient Fall Education Report given to Leslye NOVOA.
--- NOTE | 2019-12-16 07:25 | NUR ---
NURSE NOTES: Received patient alert, awake and oriented x 4; patient is german speaking but able to speak and understand spanish. BSC @ bedside. Able to make needs known. No signs of acute resp distress or pain noted. PIV site at right hand 20g S/L; intact and patent. R/A. Bed is in lowest position, brakes in place, and Call light within reach. Side rails up x2. wearing yellow gown and socks for fall precaution, bed alarm is on, and educated to use call light to call for assistance. will cont to monitor.
[2019-12-16 08:00] VITALS: BP 169/67
[2019-12-16] MEDS: Lisinopril 20mg tab ORAL SCH (08:21)
[2019-12-16] MEDS: Imdur 30mg tab ORAL SCH (08:22)
[2019-12-16] MEDS: hydroCHLOROthiazide 25mg cap ORAL SCH (08:22)
[2019-12-16] MEDS: Aspirin EC 81mg tab ORAL SCH (08:27)
--- NOTE | 2019-12-16 08:46 | Pulmonology Progress Note ---
Cayla Varghese DISHTANK OPERATOR 12/16/19 0846: Subjective Allergies: Coded Allergies: No Known Allergies (Unverified , 01/20/16) Subjective denies CP, SOB on RA sat stable ECHO is being done at this time Objective Last 24 Hour Vital Signs Date Time Temp Pulse Resp B/P (MAP) Pulse Ox O2 Delivery O2 Flow Rate FiO2 12/16/19 08:22 61 169/67 12/16/19 08:22 169/67 12/16/19 08:22 61 169/67 12/16/19 08:21 169/67 12/16/19 04:00 97.9 75 20 166/64 (98) 95 12/16/19 04:00 61 12/16/19 00:00 64 12/16/19 00:00 98.1 64 20 165/65 (98) 95 12/15/19 21:44 64 145/60 12/15/19 21:34 Room Air 12/15/19 20:00 64 12/15/19 20:00 97.9 64 18 154/60 (91) 95 12/15/19 19:00 64 12/15/19 18:48 98.1 76 14 160/54 98 Room Air 12/15/19 17:09 98.1 72 12 144/58 97 Room Air 12/15/19 15:12 98.1 72 21 143/67 98 Room Air 12/15/19 13:14 166/55 12/15/19 13:08 98.1 19 205/78 94 Room Air 12/15/19 13:08 65 19 Room Air 12/15/19 12:34 98.1 65 19 205/78 (120) 94 Room Air Intake and Output 12/15/19 12/16/19 19:00 07:00 Output Total 1100 ml Balance -1100 ml Output Urine Total 1100 ml # Voids 3 General Appearance: no acute distress, other - A/A/O x 4 Koreaan speaking overweight female in NAD HEENT: normocephalic, atraumatic, anicteric, mucous membranes moist Respiratory: lungs clear, no respiratory distress, no accessory muscle use Cardiovascular: normal rate, regular rhythm Abdomen: soft, non tender - obese Extremities: no edema, pedal pulses normal Neurologic: alert, oriented x 3, responsive Musculoskeletal: normal muscle bulk Laboratory Tests 12/15/19 12:55: White Blood Count 6.8, Red Blood Count 4.92, Hemoglobin 15.0, Hematocrit 44.2, Mean Corpuscular Volume 90, Mean Corpuscular Hemoglobin 30.4, Mean Corpuscular Hemoglobin Concent 33.8, Red Cell Distribution Width 12.0, Platelet Count 241, Mean Platelet Volume 7.5, Neutrophils (%) (Auto) 60.8, Lymphocytes (%) (Auto) 28.7, Monocytes (%) (Auto) 7.9, Eosinophils (%) (Auto) 1.9, Basophils (%) (Auto ) 0.7, Prothrombin Time 10.9, Prothromb Time International Ratio 1.0, Activated Partial Thromboplast Time 28, D-Dimer 0.25, Sodium Level 137, Potassium Level 3.7, Chloride Level 100, Carbon Dioxide Level 30, Anion Gap 7, Blood Urea Nitrogen 11, Creatinine 0.8, Estimat Glomerular Filtration Rate > 60, Glucose Level 337H, Calcium Level 9.4, Total Bilirubin 0.4, Aspartate Amino Transf (AST/ SGOT) 24, Alanine Aminotransferase (ALT/SGPT) 43, Alkaline Phosphatase 73, Troponin I 0.000, Total Protein 7.5, Albumin 3.8, Globulin 3.7, Albumin/ Globulin Ratio 1.0, Thyroid Stimulating Hormone (TSH) 0.409 12/15/19 13:55: Urine Color Pale yellow, Urine Appearance Clear, Urine pH 7, Urine Specific [place] 1.010, Urine Protein 2+H, Urine Glucose (UA) 4+H, Urine Ketones Negative , Urine Blood 1+H, Urine Nitrite Negative, Urine Bilirubin Negative, Urine Urobilinogen Normal, Urine Leukocyte Esterase Negative, Urine RBC 2-4H, Urine WBC 2-4, Urine Squamous Epithelial Cells Occasional, Urine Bacteria Few 12/16/19 04:40: White Blood Count 7.0, Red Blood Count 4.82, Hemoglobin 14.6, Hematocrit 43.5, Mean Corpuscular Volume 90, Mean Corpuscular Hemoglobin 30.3, Mean Corpuscular Hemoglobin Concent 33.5, Red Cell Distribution Width 11.6, Platelet Count 220, Mean Platelet Volume 7.3, Neutrophils (%) (Auto) 47.5, Lymphocytes (%) (Auto) 41.0, Monocytes (%) (Auto) 7.6, Eosinophils (%) (Auto) 3.2H, Basophils (%) (Auto ) 0.7, Sodium Level 140, Potassium Level 3.6, Chloride Level 103, Carbon Dioxide Level 29, Anion Gap 9, Blood Urea Nitrogen 14, Creatinine 0.8, Estimat Glomerular Filtration Rate > 60, Glucose Level 301H, Calcium Level 9.1, Troponin I 0.000 Current Medications Medications (Trade) Dose Ordered Sig/[place] Route PRN Reason Start Time Stop Time Status Last Admin Dose Admin Amlodipine Besylate (Norvasc) 10 mg DAILY ORAL 12/16/19 09:00 01/15/20 08:59 12/16/19 08:22 Aspirin (Ecotrin) 81 mg DAILY ORAL 12/16/19 09:00 01/30/20 08:59 12/16/19 08:27 Atorvastatin Calcium (Lipitor) 40 mg BEDTIME ORAL 12/15/19 21:00 03/14/20 20:59 12/15/19 21:43 Dextrose (Dextrose 50%) 25 ml Q30M PRN IV Hypoglycemia 12/15/19 17:00 03/14/20 16:59 Dextrose (Dextrose 50%) 50 ml Q30M PRN IV Hypoglycemia 12/15/19 17:00 03/14/20 16:59 Glipizide (Glucotrol) 5 mg ACBREAKFAST ORAL 12/16/19 06:30 01/15/20 06:29 12/16/19 05:47 Hydrochlorothiazide (Hydrodiuril) 25 mg DAILY ORAL 12/16/19 09:00 01/15/20 08:59 12/16/19 08:22 Insulin Aspart (NovoLOG) BEFORE MEALS AND HS SUBQ 12/15/19 21:00 03/14/20 20:59 12/16/19 05:47 Isosorbide Mononitrate (Imdur) 30 mg DAILY ORAL 12/16/19 09:00 01/15/20 08:59 12/16/19 08:22 Labetalol HCl (Normodyne) 100 mg EVERY 12 HOURS ORAL 12/15/19 21:00 01/14/20 20:59 12/16/19 08:22 Lisinopril (PriniviL) 20 mg DAILY ORAL 12/16/19 09:00 01/15/20 08:59 12/16/19 08:21 Morphine Sulfate (Morphine Sulfate) 1 mg Q6H PRN IVP CP 12/15/19 17:00 12/22/19 16:59 Nicotine (Nicoderm) 1 patch Q24H TDERMAL 12/16/19 09:00 03/15/20 08:59 Nitroglycerin (Ntg) 0.4 mg Q5M PRN SL Prn Chest Pain 12/15/19 17:00 01/14/20 16:59 Ondansetron HCl (Zofran) 4 mg Q4H PRN IM Nausea & Vomiting 12/15/19 17:00 01/14/20 16:59 Sitagliptin Phosphate (Januvia) 100 mg DAILY ORAL 12/16/19 09:00 01/15/20 08:59 12/16/19 08:21 Assessment/Plan Assessment/Plan ASSESSMENT: * Dizziness * Atypical CP with ECG changes * DM2 with elevated BS/OOC * HTN with initial HTN urgency * HLD * Likely CAD and CHF * Current daily smoker PLAN: * in tele * serial troponin x2 negative, * TTE * cardiology eval pending * a/PLT with ASA * Continue a/HTN regimen, LA nitrite , statin : Labetalol, Norvasc, HCTZ, Imdur , Atorvastatin, Lisinopril, Labetalol- BP improving, optimize further as needed * PRN NTG * PRN MSO4 * Carotid duplex -> no significant stenosis * Neuro eval (if available) * Check orthostatics * Continue Glipizide, Januvia, Hold MFM, also SSI, ENDO eval, check HgA1c, diabetic diet * Monitor volumes and renal function * DVT Px: Hep SQ * personnel counselor on smoking cessation , started on Nicotine patch * dietary eval case discussed and evaluated by supervising physician Bry Sam MD 12/16/19 1315: Subjective Allergies: Coded Allergies: No Known Allergies (Unverified , 01/20/16) Assessment/Plan Assessment/Plan Patient seen and examined with DISHTANK OPERATOR and I agree with the above formulated assessment and plan. Cayla Varghese NP Dec 16, 2019 08:46 Bry Sam MD Dec 16, 2019 13:15
--- NOTE | 2019-12-16 09:28 | NUR ---
CASE MANAGEMENT:INITIAL REVIEW 59 YR OLD FEMALE FROM HOME CC;DIZZINESS SI;UNCONTROLLED DM. DIZZINESS. 98.1 65 19 205/78 94% ON RA BG 337 UA+ PROTEIN, GLUCOSE, BLOOD, RBC HEAD CT ~ Mild age-related changes. Negative for acute intracranial bleed or mass effect. TRANSVAGINAL US ~ no acute abnormality definitively identified to account for patient presentation. PELVIS US ~ no acute abnormality definitively identified to account for patient presentation. BILAT CAROTID DUPLEX ~ No hemodynamically significant stenosis in the carotid arteries. Antegrade flow in the vertebral arteries. IS;VASOTEC IV IVF NS BOLUS ASA PO ONCE MAG SULFATE IV ANTIVERT PO ADMITTED TO TELE 12/15/19 @ 1713 TELEMETRY STATUS DCP;FROM HOME Addendum: 12/16/19 at 1002 by WILL NEUMANN LVN LVN MET OBS IN INTERQUAL
--- NOTE | 2019-12-16 11:18 | NUR ---
CARDIOLOGY ECHO REPORT : Normal left ventricular chamber size, systolic function and wall motion . Left ventricular ejection fraction estimated to be 60-65 %. Mild left ventricular hypertrophy by 2-D. Anterior Echo-free space, may be due to pericardial fat or effusion. All other cardiac chamber sizes are within normal limits. Calcification of aortic valve with adequate cusp excursion. Thickened mitral valve leaflets with normal excursion. Mitral annulus and aortic root calcification. Pulmonic valve not well visualized. Normal tricuspid valve structure. IVC at normal size with physiologic collapse. A color flow and spectral Doppler study was performed and revealed: Moderate aortic regurgitation. Mild to moderate mitral regurgitation. Mitral diastolic velocities suggest reduced left ventricular relaxation c/w mild LV diastolic dysfunction (Grade I ). Mild tricuspid regurgitation. Tricuspid systolic velocities suggests peak right ventricular systolic pressure of 44 mmHg,consistent with mild pulmonary hypertension. Pulmonic regurgitation present.
--- NOTE | 2019-12-16 11:35 | NUR ---
NURSE NOTES: PATIENT SEEN BY PHYSICAL THERAPIST AND REPORTED THAT PATIENT IS EXPERIENCING POSTURAL HYPOTENSION. DOES NOT SUGGESTED TO BE ON A COMMODE FOR THE MOMENT. HIGH RISK OF FALLS. WILL CONT TO MONITOR.
[2019-12-16 12:00] VITALS: BP 156/67
--- NOTE | 2019-12-16 14:08 | Diagnostic Imaging Report ---
EXAM: XR Chest, 1 View CLINICAL HISTORY: DYSPNEA TECHNIQUE: Frontal view of the chest. COMPARISON: Chest x-rays dated 01/20/16 FINDINGS: Lungs: Unremarkable. The lungs appear clear. No focal consolidation. Pleural space: Unremarkable. The costophrenic angles are sharp. No visible pneumothorax. Heart: Unremarkable. No cardiomegaly. Mediastinum: Unremarkable. Bones/joints: Unremarkable. Vasculature: Atherosclerotic calcifications are noted within the aortic arch. Tubes, lines and devices: Telemetry leads overlie the thorax. IMPRESSION: No acute radiographic findings.
--- NOTE | 2019-12-16 14:53 | NUR ---
PT Note PT eval completed, treatment initiated. Orthostatic vital signs taken during eval/tx as are as follows: supine 165/62, HR 61; sitting 150/53, HR 58; after standing x 30 seconds in sitting position: 137/58, HR 59; back in supine position 157/64, HR 58. Patient c/o dizziness upon sitting and standing with marked postural sway noted. Patient was only able to stand x 30 seconds. Patient is a high risk for falls. Patient needs PT to improve her safety in mobility and gait to enable her to return to [facility]. Addendum: 12/16/19 at 1453 by REBECCA MACDONALD PT Amended: Links added.
--- NOTE | 2019-12-16 15:03 | Cardiac Electrophysiology PN ---
Subjective Subjective [id number] Objective Last 24 Hour Vital Signs Date Time Temp Pulse Resp B/P (MAP) Pulse Ox O2 Delivery O2 Flow Rate FiO2 12/16/19 12:00 58 12/16/19 12:00 98.1 62 20 156/67 (96) 95 12/16/19 11:30 61 58 59 12/16/19 09:13 Room Air 12/16/19 08:22 61 169/67 12/16/19 08:22 169/67 12/16/19 08:22 61 169/67 12/16/19 08:21 169/67 12/16/19 08:00 98.4 61 20 169/67 (101) 95 12/16/19 08:00 61 12/16/19 04:00 97.9 75 20 166/64 (98) 95 12/16/19 04:00 61 12/16/19 00:00 64 12/16/19 00:00 98.1 64 20 165/65 (98) 95 12/15/19 21:44 64 145/60 12/15/19 21:34 Room Air 12/15/19 20:00 64 12/15/19 20:00 97.9 64 18 154/60 (91) 95 12/15/19 19:00 64 12/15/19 18:48 98.1 76 14 160/54 98 Room Air 12/15/19 17:09 98.1 72 12 144/58 97 Room Air 12/15/19 15:12 98.1 72 21 143/67 98 Room Air Intake and Output 12/15/19 12/16/19 19:00 07:00 Output Total 1100 ml Balance -1100 ml Output Urine Total 1100 ml # Voids 3 Laboratory Tests Test 12/16/19 04:40 12/16/19 11:41 White Blood Count 7.0 K/UL (4.8-10.8) Red Blood Count 4.82 M/UL (4.20-5.40) Hemoglobin 14.6 G/DL (12.0-16.0) Hematocrit 43.5 % (37.0-47.0) Mean Corpuscular Volume 90 FL (80-99) Mean Corpuscular Hemoglobin 30.3 PG (27.0-31.0) Mean Corpuscular Hemoglobin Concent 33.5 G/DL (32.0-36.0) Red Cell Distribution Width 11.6 % (11.6-14.8) Platelet Count 220 K/UL (150-450) Mean Platelet Volume 7.3 FL (6.5-10.1) Neutrophils (%) (Auto) 47.5 % (45.0-75.0) Lymphocytes (%) (Auto) 41.0 % (20.0-45.0) Monocytes (%) (Auto) 7.6 % (1.0-10.0) Eosinophils (%) (Auto) 3.2 % (0.0-3.0) H Basophils (%) (Auto) 0.7 % (0.0-2.0) Sodium Level 140 MMOL/L (136-145) Potassium Level 3.6 MMOL/L (3.5-5.1) Chloride Level 103 MMOL/L (98-107) Carbon Dioxide Level 29 MMOL/L (21-32) Anion Gap 9 mmol/L (5-15) Blood Urea Nitrogen 14 mg/dL (7-18) Creatinine 0.8 MG/DL (0.55-1.30) Estimat Glomerular Filtration Rate > 60 mL/min (>60) Glucose Level 301 MG/DL (74-106) H Calcium Level 9.1 MG/DL (8.5-10.1) Troponin I 0.000 ng/mL (0.000-0.056) POC Whole Blood Glucose 308 MG/DL (74-106) H Satya Garcia MD Dec 16, 2019 15:03
[2019-12-16] MEDS ORDERED: Lexiscan 0.4mg/5ml syringe IV PRN (15:15)
[2019-12-16 16:00] VITALS: BP 159/66
--- NOTE | 2019-12-16 19:21 | NUR ---
NURSE HAND-OFF REPORT: Important Events on Shift: fall risk secondary to dizziness. orthostatic v/s rendered Patient Status: Diet: Pending Orders: Pending Results/Labs: Pending MD notification: Latest Vital Signs: Temperature 97.9 , Pulse 62 , B/P 159 /66 , Respiratory Rate 20 , O2 SAT 95 , Room Air, O2 Flow Rate . Vital Sign Comment: EKG Rhythm: Sinus Rhythm Rhythm change?: N MD Notified?: N - MD Response: Latest Lim Fall Score: 55 Fall Risk: High Risk Safety Measures: Call light Within Reach, Bed Alarm Zone 2, Side Rails Side Rails x3, Bed position Low and Locked. Fall Precautions: Yellow Socks Yellow Gown Door Sign Patient Fall Education Report given to
--- NOTE | 2019-12-16 19:28 | NUR ---
NURSE NOTES: Received report from Leslye WATSON. Patient is alert and oriented x 4; patient is mostly Koran speaking but understand Icelandic and is able to make needs known. Patient was awake comfortably in Low-fowlers. No signs of distress or pain reported at this time. Patient is reporting dizziness sitting in bed. Patients IV site at right hand 20g S/L; Flushed and patent. No erythema or bleeding noted. Patients bed is in lowest position, brakes in place, and Call light with in reach. Side rails up x2. Patient is in yellow gown and socks for fall precaution, bed alarm is on, and educated to use call light to call for assistance. Will continue to plan of care.
--- NOTE | 2019-12-16 19:59 | Consultation ---
DATE OF CONSULTATION: 12/16/2019 CARDIOLOGY CONSULTATION CONSULTING PHYSICIAN: Satya Garcia M.D. REFERRING PHYSICIAN: Bry Sam M.D. REASON FOR CONSULTATION: Chest pain and dizziness. HISTORY OF PRESENT ILLNESS: The patient is a 59-year-old lady here with history of hypertension, diabetes, and hyperlipidemia, presented to the emergency room with dizziness and chest discomfort. The patient had elevated blood pressure in the emergency room. EKG showed anterolateral T-wave abnormality. The patient was admitted and a Cardiology consultation was obtained for further evaluation. The patient also was noted to have uncontrolled diabetes. REVIEW OF SYSTEMS: Negative other than what was mentioned in the history of present illness. PAST MEDICAL HISTORY: As mentioned above. FAMILY HISTORY: Noncontributory. SOCIAL HISTORY: Does not smoke or drink alcohol. PHYSICAL EXAMINATION: VITAL SIGNS: Show a blood pressure of 156/67, pulse 58, respirations 18, and temperature 98.1. HEAD AND NECK: Showed no jugular venous distention. LUNGS: Clear. CARDIOVASCULAR: Shows regular S1 and S2 with no gallop or murmur. ABDOMEN: Soft. EXTREMITIES: No pitting edema. LABORATORY AND DIAGNOSTIC DATA: Her EKG shows sinus rhythm with lateral ischemia with T-wave inversion in lead 1, aVL. Her QT is also mildly prolonged. Her labs show white count of 7, hemoglobin of 14.7, hematocrit of 43.5, and platelet count of 220,000. Sodium 140, potassium 3.3, BUN of 14, creatinine 0.8. Troponin negative x2. ASSESSMENT AND PLAN: 1. Chest pain with T-wave inversion in lateral leads. She is already ruled out for myocardial infarction. I do not know if the EKG changes are new or old. We will schedule the patient for a stress test for further evaluation. It is of note that the patient's echocardiogram showed ejection fraction of 60% to 65% with moderate aortic regurgitation. 2. Hypertension. On amlodipine 10 mg daily, hydrochlorothiazide 25 mg daily, lisinopril 20 mg daily, and Imdur 30 mg daily. The patient is also on labetalol 100 mg b.i.d. 3. Hyperlipidemia. On Lipitor. 4. Uncontrolled diabetes. Her blood sugar was 337 on admission. Currently, on Januvia and insulin. 5. Dizziness, on meclizine. Thank you very much for allowing me to participate in the care of this patient. Please do not hesitate to contact me for any questions regarding my evaluation. Satya Garcia M.D. DR: MARKY JOB#: [id number] CC:
[2019-12-16 20:00] VITALS: BP 169/63
[2019-12-16] MEDS: Atorvastatin 20mg tab ORAL SCH (20:40)
[2019-12-16] MEDS ORDERED: NovoLOG Insulin Flexpen SUBQ SCH (21:45)
--- NOTE | 2019-12-16 21:45 | NUR ---
NURSE NOTES: Spoke with Dr. Sam regarding patient critical high blood glucose of 497 at 20:45, 433 at 21:15, and 431 at 21:30. Doctor has ordered a diet change from Cardiac Diet to Diabetic and Cardiac diet and a single dose on 10 units on NovoLog insulin to be given now. Noted and carried out.
--- NOTE | 2019-12-16 21:58 | NUR ---
NURSE NOTES: Patients single dose of NovoLog 10 units would not scan in, barcode had to be manually entered.
--- NOTE | 2019-12-16 23:15 | NUR ---
NURSE NOTES: Dr. Nash came and saw patient and added new orders for 15units of Levemir BID starting 12/17/2019 9;00am and 9:00pm. also ordered patient to be placed on moderate sliding scale ACHS and 10units of NovoLog ACHS to be given with the hold perimeter of hold if Blood Sugar in <100. Also wanted a HA1C but their is already an active order in place. Noted and carried out.
[2019-12-17] VITALS (11 sets, daily range): BP systolic 158–188; BP diastolic 60–78
[2019-12-17] MEDS ORDERED: NovoLOG Insulin Flexpen SUBQ SCH ×2 (06:30)
[2019-12-17] MEDS: GlipiZIDE 5mg tab ORAL SCH (06:47)
[2019-12-17] MEDS: NovoLOG Insulin Flexpen SUBQ SCH ×6 (06:49→20:26)
--- NOTE | 2019-12-17 07:11 | NUR ---
NURSE HAND-OFF REPORT: Important Events on Shift: Patients 21:00 patients blood sugar was 433 12 units of NovoLog was given. patients Blood sugar was the3n 431 at 21:30. Missy Hernandez ordered 10 units of novolog to be given as a one time dose. Patients Blood sugar was 150 at 03:00am. Dr. Nash came and saw patient and added new orders for 15units of Levemir BID starting 12/17/2019 9;00am and 9:00pm. also ordered patient to be placed on moderate sliding scale ACHS and 10units of NovoLog ACHS to be given with the hold perimeter of hold if Blood Sugar in <100. Also wanted a HA1C but their is already an active order in place. Patient Status: Stable Diet: CCHO Medium soft chew/cardiac Pending Orders: [] Pending Results/Labs:[] Pending MD notification:[] Latest Vital Signs: Temperature 97.5 , Pulse 60 , B/P 173 /71 , Respiratory Rate 21 , O2 SAT 94 , Room Air, O2 Flow Rate . Vital Sign Comment: [] EKG Rhythm: Sinus Rhythm Rhythm change?: N MD Notified?: N - MD Response: Latest Lim Fall Score: 55 Fall Risk: High Risk Safety Measures: Call light Within Reach, Bed Alarm Zone 2, Side Rails Side Rails x3, Bed position Low and Locked. Fall Precautions: Yellow Socks Yellow Gown Door Sign Patient Fall Education Report given to Leslye MOSQUEDA
--- NOTE | 2019-12-17 07:45 | NUR ---
NURSE NOTES: Received patient alert, awake and oriented x 4; in bed lying calm and comfortable. denies of pain/discomfort noted. patient able to interact in jordanian well. BSC @ bedside. PIV site at right hand 20g S/L; intact and patent. R/A. Bed is in lowest position, brakes in place, and Call light within reach. Side rails up x3. wearing yellow gown and socks for fall precaution, bed alarm is on, and educated to use call light to call for assistance. will cont to monitor.
[2019-12-17 07:51] LABS: BASOPHILS % (AUTO) 0.8 % (0.0-2.0); EOSINOPHILS % (AUTO) 2.8 % (0.0-3.0); HEMATOCRIT 42.1 % (37.0-47.0); HEMOGLOBIN 14.4 G/DL (12.0-16.0); LYMPHOCYTES % (AUTO) 35.8 % (20.0-45.0); MEAN CORPUSCULAR VOLUME 90 FL (80-99); MONOCYTES % (AUTO) 8.1 % (1.0-10.0); NEUTROPHILS % (AUTO) 52.6 % (45.0-75.0); PLATELET COUNT 221 K/UL (150-450); RED CELL DISTRIBUTION WIDTH 11.8 % (11.6-14.8); WHITE BLOOD COUNT 6.8 K/UL (4.8-10.8)
[2019-12-17 08:03] LABS: ANION GAP 13 mmol/L (5-15); BLOOD UREA NITROGEN 15 mg/dL (7-18); CALCIUM 8.5 MG/DL (8.5-10.1); CARBON DIOXIDE 25 MMOL/L (21-32); CHLORIDE 107 MMOL/L (98-107); CREATININE 0.7 MG/DL (0.55-1.30); SODIUM 145 MMOL/L (136-145)
[2019-12-17 08:08] LABS: CHOLESTEROL 191 MG/DL (< 200); HDL CHOLESTEROL 42 MG/DL (40-60); TRIGLYCERIDES 261 MG/DL (30-150)
[2019-12-17] MEDS: Aspirin EC 81mg tab ORAL SCH (08:46)
[2019-12-17] MEDS: Lisinopril 20mg tab ORAL SCH (08:47)
[2019-12-17] MEDS: Imdur 30mg tab ORAL SCH (08:47)
[2019-12-17] MEDS: hydroCHLOROthiazide 25mg cap ORAL SCH (08:48)
[2019-12-17] MEDS: Levemir Flexpen SUBQ SCH ×2 (09:00→17:37)
--- NOTE | 2019-12-17 09:13 | Pulmonology Progress Note ---
Cayla Varghese OUTREACH CLINICIAN 12/17/19 0913: Subjective ROS Limited/Unobtainable: Yes Allergies: Coded Allergies: No Known Allergies (Unverified , 01/20/16) Subjective denies CP, SOB no palpitations, less dizziness on RA sat stable seen and evaluated by cardio stress test pending for am BS still high, seen by cardio Objective Last 24 Hour Vital Signs Date Time Temp Pulse Resp B/P (MAP) Pulse Ox O2 Delivery O2 Flow Rate FiO2 12/17/19 08:48 65 188/77 12/17/19 08:48 65 188/77 12/17/19 08:47 188/77 12/17/19 08:47 188/77 12/17/19 08:00 98.0 66 20 188/77 (114) 12/17/19 04:00 97.5 60 21 173/71 (105) 94 12/17/19 04:00 61 12/17/19 00:04 169/63 (98) 12/17/19 00:02 182/69 (106) 12/17/19 00:00 59 12/17/19 00:00 99.3 72 20 175/68 (103) 94 12/16/19 21:00 Room Air 12/16/19 20:41 72 169/68 12/16/19 20:00 66 12/16/19 20:00 99.3 72 20 169/63 (98) 94 12/16/19 16:56 62 12/16/19 16:00 97.9 61 20 159/66 (97) 95 12/16/19 12:00 58 12/16/19 12:00 98.1 62 20 156/67 (96) 95 12/16/19 11:30 61 58 59 12/16/19 09:13 Room Air Intake and Output 12/16/19 12/17/19 19:00 07:00 Intake Total 560 ml 320 ml Balance 560 ml 320 ml Intake Oral 560 ml 320 ml # Voids 3 1 General Appearance: no acute distress, other - A/A/O x 4 Koreaan speaking overweight female in NAD HEENT: normocephalic, atraumatic, anicteric, mucous membranes moist Respiratory: lungs clear, no respiratory distress, no accessory muscle use Cardiovascular: normal rate, regular rhythm Abdomen: soft, non tender - obese Extremities: no edema, pedal pulses normal Neurologic: alert, oriented x 3, responsive Musculoskeletal: normal muscle bulk Laboratory Tests 12/16/19 11:41: POC Whole Blood Glucose 308H 12/16/19 21:17: POC Whole Blood Glucose 433H 12/16/19 21:32: POC Whole Blood Glucose 431H 12/17/19 05:40: White Blood Count 6.8, Red Blood Count 4.70, Hemoglobin 14.4, Hematocrit 42.1, Mean Corpuscular Volume 90, Mean Corpuscular Hemoglobin 30.6, Mean Corpuscular Hemoglobin Concent 34.2, Red Cell Distribution Width 11.8, Platelet Count 221, Mean Platelet Volume 7.3, Neutrophils (%) (Auto) 52.6, Lymphocytes (%) (Auto) 35.8, Monocytes (%) (Auto) 8.1, Eosinophils (%) (Auto) 2.8, Basophils (%) (Auto ) 0.8, Sodium Level 145, Potassium Level 4.0, Chloride Level 107, Carbon Dioxide Level 25, Anion Gap 13, Blood Urea Nitrogen 15, Creatinine 0.7, Estimat Glomerular Filtration Rate > 60, Glucose Level 318H, Hemoglobin A1c [Pending], Calcium Level 8.5, Triglycerides Level 261H, Cholesterol Level 191, LDL Cholesterol 110H, HDL Cholesterol 42, Cholesterol/HDL Ratio 4.5H 12/17/19 06:09: POC Whole Blood Glucose 293H Current Medications Medications (Trade) Dose Ordered Sig/Kwabena Route PRN Reason Start Time Stop Time Status Last Admin Dose Admin Amlodipine Besylate (Norvasc) 10 mg DAILY ORAL 12/16/19 09:00 01/15/20 08:59 12/17/19 08:48 Aspirin (Ecotrin) 81 mg DAILY ORAL 12/16/19 09:00 01/30/20 08:59 12/17/19 08:46 Atorvastatin Calcium (Lipitor) 40 mg BEDTIME ORAL 12/15/19 21:00 03/14/20 20:59 12/16/19 20:40 Dextrose (Dextrose 50%) 25 ml Q30M PRN IV Hypoglycemia 12/16/19 23:45 03/15/20 23:44 Dextrose (Dextrose 50%) 50 ml Q30M PRN IV Hypoglycemia 12/16/19 23:45 03/15/20 23:44 Glipizide (Glucotrol) 5 mg ACBREAKFAST ORAL 12/16/19 06:30 01/15/20 06:29 12/17/19 06:47 Hydrochlorothiazide (Hydrodiuril) 25 mg DAILY ORAL 12/16/19 09:00 01/15/20 08:59 12/17/19 08:48 Insulin Aspart (NovoLOG) BEFORE MEALS AND HS SUBQ 12/17/19 11:30 03/16/20 11:29 Insulin Aspart (NovoLOG) 10 units NOVOTIAC SUBQ 12/17/19 11:50 03/16/20 11:49 Insulin Detemir (Levemir) 15 units BID SUBQ 12/17/19 09:00 03/16/20 08:59 12/17/19 09:00 Isosorbide Mononitrate (Imdur) 30 mg DAILY ORAL 12/16/19 09:00 01/15/20 08:59 12/17/19 08:47 Labetalol HCl (Normodyne) 100 mg EVERY 12 HOURS ORAL 12/15/19 21:00 01/14/20 20:59 12/17/19 08:48 Lisinopril (PriniviL) 20 mg DAILY ORAL 12/16/19 09:00 01/15/20 08:59 12/17/19 08:47 Morphine Sulfate (Morphine Sulfate) 1 mg Q6H PRN IVP CP 12/15/19 17:00 12/22/19 16:59 Nicotine (Nicoderm) 1 patch Q24H TDERMAL 12/16/19 09:00 03/15/20 08:59 Nitroglycerin (Ntg) 0.4 mg Q5M PRN SL Prn Chest Pain 12/15/19 17:00 01/14/20 16:59 Ondansetron HCl (Zofran) 4 mg Q4H PRN IM Nausea & Vomiting 12/15/19 17:00 01/14/20 16:59 Regadenoson (Lexiscan) 0.4 mg ONCE PRN IV stress test 12/16/19 15:15 12/18/19 15:14 Sitagliptin Phosphate (Januvia) 100 mg DAILY ORAL 12/16/19 09:00 01/15/20 08:59 12/17/19 08:46 Assessment/Plan Assessment/Plan ASSESSMENT: * Dizziness * Atypical CP with ECG changes * DM2 with elevated BS/OOC * HTN with initial HTN urgency * HLD * Likely CAD and CHF * Current daily smoker PLAN: * tele * serial troponin x2 negative, * ECHO with pEF and mild pulm HTN * cardiology eval appreciated * Continue a/HTN regimen, LA nitrite , statin : Labetalol, Norvasc, HCTZ, Imdur , Atorvastatin, Lisinopril, Labetalol- BP improving, optimize further as needed * lipid panel with TG 261, LDL 110, on sttain * PRN NTG * PRN MSO4 * Carotid duplex -> no significant stenosis * Neuro eval (if available) * orthostatics only done once 1m 12/15 + systolic BP orthostatic changes * endo eval appreciated * now on Levemir, SA ac insulin and SSI , also oral Glipizide and Januvia * diabetic diet and teaching ( dietary eval ordered) * check HgA1c -pending * monitor volumes and renal function * DVT Px: Hep SQ * appliance counselor on smoking cessation , started on Nicotine patch case discussed and evaluated by supervising physician Bry Sam MD 12/17/19 1338: Subjective Allergies: Coded Allergies: No Known Allergies (Unverified , 01/20/16) Assessment/Plan Assessment/Plan Patient seen and examined with OUTREACH CLINICIAN and I agree with the above formulated assessment and plan. Cayla Varghese NP Dec 17, 2019 09:13 Bry Sam MD Dec 17, 2019 13:38
--- NOTE | 2019-12-17 09:47 | NUR ---
CASE MANAGEMENT:REVIEW SI;ATYPICAL CHEST PAIN W/ECG CHANGES DIZZINESS. HTN. HLD. UNCONTROLLED DM. 98.0 21 188/77 94% ON RA BG 431 HGB A1C 10.3 LDL CHOLESTEROL 110 TRIGLYCERIDES 261 IS;INSULIN NOVOLOG SUBQ TIAC INSULIN LEVEMIR SUBQ BID NORVASC PO QD ASA PO QD HCTZ PO QD IMDUR PO QD PRINIVIL PO QD JANUVIA PO D GLIPIZIDE PO QD LIPITOR PO QD LABETALOL PO Q12 TELE STATUS DCP;FROM HOME PLAN; STRESS TEST ECG = EF 60-65% W/MODERATE REGURGITATION
--- NOTE | 2019-12-17 10:00 | NUR ---
NURSE NOTES: rechecked bp from 188/77 to 167/78 after medication given this am. will cont to monitor.
--- NOTE | 2019-12-17 10:01 | NUR ---
INSURANCE CLINICALS AND REVIEWS HAVE BEEN FAXED TO / [facility] P: [phone] F: [phone]
--- NOTE | 2019-12-17 10:51 | NUR ---
RD ASSESSMENT & RECOMMENDATIONS SEE CARE ACTIVITY FOR COMPLETE ASSESSMENT DAILY ESTIMATED NEEDS: Needs based on Cardiac, DM 55kg abw 25-30 kcals/kg 5185-8286 total kcals 1-1.5 g protein/kg 55-83 g total protein Fluid per MD, on diuretics NUTRITION DIAGNOSIS: Decreased sodium and fat needs r/t clinical status as evidenced by pt w/ HTN, on diuretics, elevated Triglycerides (261), elev LDL (110), BMI overweight per guidelines. CURRENT DIET: CCHO MED/ Cardiac PO DIET RECOMMENDATIONS: CCHO LOW/ CARDIAC texture as tolerated ADDITIONAL RECOMMENDATIONS: 1) diet edu as able 2) Diet recs as above, CCHO LOW w/ Cardiac 3) Daily standing weights on diuretics -> Monitor lytes daily 4) No noted hypoglycemic event, BG remains elevated (300's) 5) Lipid lowering agents
--- NOTE | 2019-12-17 15:52 | NUR ---
CARDIOLOGY 2D REPORT: Normal left ventricular chamber size, systolic function and wall motion. Left ventricular ejection fraction estimated to be 50-55 %. Mild left ventricular hypertrophy. Moderate posterior pleural effusion. Moderate left atrial enlargement. Mild right atrial enlargement. Right ventricular chamber size is within normal limits. Moderate focal aortic valve sclerosis with decreased cusp excursion. Moderate thickened mitral valve leaflets with normal excursion. Mild mitral annulus and aortic root calcification. Pulmonic valve not well visualized. Normal tricuspid valve structure. IVC dilated at 2.3 cm and without physiologic collapse suggestive of increased RA pressure. A color flow and spectral Doppler study was performed and revealed: Trace aortic regurgitation. Moderate mitral regurgitation. Severe tricuspid regurgitation. Tricuspid systolic velocities suggests peak right ventricular systolic pressure of 67 mmHg,consistent with severe pulmonary hypertension. Moderate pulmonic regurgitation present.
--- NOTE | 2019-12-17 18:33 | NUR ---
NURSE NOTES: OBTAINED NEW ORDER FOR HBP WITH PARAMETERS FROM DR ALONSO. PATIENT APPEARS TO BE ASYMPTOMATIC FOR B/P >160. ABLE TO VERBALIZE NEEDS. WILL CONT TO MONITOR.
--- NOTE | 2019-12-17 18:51 | Cardiac Electrophysiology PN ---
Assessment/Plan Assessment/Plan 1. Chest pain with T-wave inversion in lateral leads. She is already ruled out for myocardial infarction. I do not know if the EKG changes are new or old. Scheduled the patient for a stress test in am. Echocardiogram showed ejection fraction of 60% to 65% with moderate aortic regurgitation. 2. Hypertension. On amlodipine 10 mg daily, hydrochlorothiazide 25 mg daily, lisinopril 20 mg daily, and Imdur 30 mg daily and labetalol 100 mg b.i.d. Will increase Labetalol to 200 bid and add prn Cloniodine 3. Hyperlipidemia. On Lipitor. 4. Uncontrolled diabetes. Her blood sugar was 337 on admission. Currently, on Januvia and insulin. 5. Dizziness, on meclizine. MANJIT RN Subjective Subjective Feeling better. No CP or SOB. Objective Last 24 Hour Vital Signs Date Time Temp Pulse Resp B/P (MAP) Pulse Ox O2 Delivery O2 Flow Rate FiO2 12/17/19 16:30 70 158/70 (99) 12/17/19 16:00 98.1 61 20 167/71 (103) 94 12/17/19 12:00 97.9 60 20 168/68 (101) 96 12/17/19 12:00 60 12/17/19 09:58 62 167/78 (107) 12/17/19 09:57 62 65 65 12/17/19 09:35 Room Air 12/17/19 08:48 65 188/77 12/17/19 08:48 65 188/77 12/17/19 08:47 188/77 12/17/19 08:47 188/77 12/17/19 08:00 61 12/17/19 08:00 98.0 66 20 188/77 (114) 96 12/17/19 04:00 97.5 60 21 173/71 (105) 94 12/17/19 04:00 61 12/17/19 00:04 169/63 (98) 12/17/19 00:02 182/69 (106) 12/17/19 00:00 59 12/17/19 00:00 99.3 72 20 175/68 (103) 94 12/16/19 21:00 Room Air 12/16/19 20:41 72 169/68 12/16/19 20:00 66 12/16/19 20:00 99.3 72 20 169/63 (98) 94 Intake and Output 12/16/19 12/17/19 19:00 07:00 Intake Total 560 ml 320 ml Balance 560 ml 320 ml Intake Oral 560 ml 320 ml # Voids 3 1 Laboratory Tests Test 12/16/19 21:17 12/16/19 21:32 12/17/19 05:40 12/17/19 06:09 POC Whole Blood Glucose 433 MG/DL (74-106) H 431 MG/DL (74-106) H 293 MG/DL (74-106) H White Blood Count 6.8 K/UL (4.8-10.8) Red Blood Count 4.70 M/UL (4.20-5.40) Hemoglobin 14.4 G/DL (12.0-16.0) Hematocrit 42.1 % (37.0-47.0) Mean Corpuscular Volume 90 FL (80-99) Mean Corpuscular Hemoglobin 30.6 PG (27.0-31.0) Mean Corpuscular Hemoglobin Concent 34.2 G/DL (32.0-36.0) Red Cell Distribution Width 11.8 % (11.6-14.8) Platelet Count 221 K/UL (150-450) Mean Platelet Volume 7.3 FL (6.5-10.1) Neutrophils (%) (Auto) 52.6 % (45.0-75.0) Lymphocytes (%) (Auto) 35.8 % (20.0-45.0) Monocytes (%) (Auto) 8.1 % (1.0-10.0) Eosinophils (%) (Auto) 2.8 % (0.0-3.0) Basophils (%) (Auto) 0.8 % (0.0-2.0) Sodium Level 145 MMOL/L (136-145) Potassium Level 4.0 MMOL/L (3.5-5.1) Chloride Level 107 MMOL/L (98-107) Carbon Dioxide Level 25 MMOL/L (21-32) Anion Gap 13 mmol/L (5-15) Blood Urea Nitrogen 15 mg/dL (7-18) Creatinine 0.7 MG/DL (0.55-1.30) Estimat Glomerular Filtration Rate > 60 mL/min (>60) Glucose Level 318 MG/DL (74-106) H Hemoglobin A1c 10.3 % (4.3-6.0) H Calcium Level 8.5 MG/DL (8.5-10.1) Triglycerides Level 261 MG/DL (30-150) H Cholesterol Level 191 MG/DL (< 200) LDL Cholesterol 110 mg/dL (<100) H HDL Cholesterol 42 MG/DL (40-60) Cholesterol/HDL Ratio 4.5 (3.3-4.4) H Test 12/17/19 16:16 POC Whole Blood Glucose 320 MG/DL (74-106) H Objective HEAD AND NECK: No jugular venous distention. LUNGS: Clear. CARDIOVASCULAR: Shows regular S1 and S2 with no gallop or murmur. ABDOMEN: Soft. EXTREMITIES: No pitting edema. Satya Garcia MD Dec 17, 2019 18:51
--- NOTE | 2019-12-17 19:04 | NUR ---
NURSE HAND-OFF REPORT: Important Events on Shift: monitor blood pressure and blood sugar Patient Status: Diet: Pending Orders: Pending Results/Labs: Pending MD notification: Latest Vital Signs: Temperature 98.1 , Pulse 70 , B/P 158 /70 , Respiratory Rate 20 , O2 SAT 94 , Room Air, O2 Flow Rate . Vital Sign Comment: EKG Rhythm: Sinus Rhythm Rhythm change?: N MD Notified?: N - MD Response: Latest Lim Fall Score: 55 Fall Risk: High Risk Safety Measures: Call light Within Reach, Bed Alarm Zone 2, Side Rails Side Rails x3, Bed position Low and Locked. Fall Precautions: Yellow Socks Yellow Gown Door Sign Patient Fall Education Report given to MORIS. Addendum: 12/17/19 at 1907 by MARC MONTANEZ LVN STATUS: STABLE DIET: CCHO MED/ CARDIAC/ SOFT EASY CHEW. Addendum: 12/17/19 at 1908 by MARC MONTANEZ LVN PENDING ORDERS: MARISA MORALES AFTER ; EFRAIN MONDRAGON. IN AM
--- NOTE | 2019-12-17 19:40 | NUR ---
NURSE NOTES: Received patient alert, awake and oriented x 4; in bed lying calm and comfortable. denies of pain/discomfort noted. patient able to interact in palestinian and Greenlandic. BSC @ bedside. IV site at right hand 20g S/L; intact and patent. R/A. Bed is in lowest position, locked, bed alarm on, side rails x2, and Call light within reach. Fall precautions in place- wearing yellow gown and socks, fall bracelet on. Educated pt to use call light to call for assistance, verbalized understanding. will cont to monitor.
--- NOTE | 2019-12-17 20:16 | NUR ---
NURSE NOTES: Pt's daughter is at the bedside, explained to both of them that pt will be NPO at midnight no caffeine, no chocolate, lexiscan will take place in the morning, sign above bed and on door. Took orthostatic vital signs and Pt BP is elevated, no significant or appreciable change from sitting to standing, slight complaint of dizziness. VS orthostatic: sitting up in bed: BP is 173/60 mm Hg, heart rate 63 bpm Standin/68 mm Hg, heart rate 69 bpm
[2019-12-17] MEDS: Atorvastatin 20mg tab ORAL SCH (20:23)
--- NOTE | 2019-12-17 20:46 | NUR ---
NURSE NOTES: Pt reported slight cough, dry nonproductive cough. She says she usually has a slight cough as she is a smoker, informed pt we will watch it. Reported on prior to coming to the hospital that pt was covid -. Encouraged pt to drink fluids and inform if frequency of cough is exacerbated, the air quality is very poor at this time as the daughter acknowledged. Pt alsi is requesting a sleeping medication . will contact primary MD Dr Sam for a medication to assist her to sleep, as she is concerned she will be hungry because she will be NPO at midnight for lexiscan.
[2019-12-17] MEDS: Zolpidem 5mg tab ORAL PRN (22:19)
[2019-12-18] VITALS: BP 165/68
[2019-12-18 04:00] VITALS: BP 165/69
[2019-12-18] MEDS: NovoLOG Insulin Flexpen SUBQ SCH ×7 (06:30→20:15)
--- NOTE | 2019-12-18 06:50 | General Progress Note ---
Assessment/Plan Problem List: (1) Hypertension ICD Codes: I10 - Essential (primary) hypertension SNOMED: 98276921 (2) Diabetes ICD Codes: E11.9 - Type 2 diabetes mellitus without complications SNOMED: 60852935 (3) Anxiety ICD Codes: F41.9 - Anxiety disorder, unspecified SNOMED: 29396181 (4) Dizziness ICD Codes: R42 - Dizziness and giddiness SNOMED: 011331288, 041734873 Assessment/Plan: continue Levemir 15 units bid continue Novolog 10 units ac tid continue Novolog sliding scale ac / hs continue to hold Metformin in expectation of possible contrast exposure Subjective Allergies: Coded Allergies: No Known Allergies (Unverified , 01/20/16) All Systems: reviewed and negative except above Subjective events noted and interval notes reviewed evaluation by Dr Nash over the weekend glucose values high on admission - trending down Item Value Date Time Bedside Blood Glucose 299 mg/dl H 12/17/19 2026 Bedside Blood Glucose 320 mg/dl H 12/17/19 1737 Bedside Blood Glucose 353 mg/dl H 12/17/19 1156 Bedside Blood Glucose 357 mg/dl H 12/17/19 0900 Bedside Blood Glucose 293 mg/dl H 12/17/19 0649 Objective Last 24 Hour Vital Signs Date Time Temp Pulse Resp B/P (MAP) Pulse Ox O2 Delivery O2 Flow Rate FiO2 12/18/19 04:00 53 12/18/19 04:00 98.0 52 20 165/69 (101) 95 12/18/19 00:00 60 12/18/19 00:00 98.0 61 20 165/68 (100) 95 12/17/19 21:00 Room Air 12/17/19 20:23 173/60 12/17/19 20:00 61 12/17/19 19:50 69 20 169/68 (101) 12/17/19 19:45 97.5 63 20 173/60 (97) 95 12/17/19 16:30 70 158/70 (99) 12/17/19 16:00 98.1 61 20 167/71 (103) 94 12/17/19 12:00 97.9 60 20 168/68 (101) 96 12/17/19 12:00 60 12/17/19 09:58 62 167/78 (107) 12/17/19 09:57 62 65 65 12/17/19 09:35 Room Air 12/17/19 08:48 65 188/77 12/17/19 08:48 65 188/77 12/17/19 08:47 188/77 12/17/19 08:47 188/77 12/17/19 08:00 61 12/17/19 08:00 98.0 66 20 188/77 (114) 96 Intake and Output 12/17/19 12/18/19 19:00 07:00 Intake Total 960 ml Balance 960 ml Intake Oral 960 ml # Voids 6 # Bowel Movements 1 Laboratory Tests 12/17/19 16:16: POC Whole Blood Glucose 320H 12/17/19 19:59: POC Whole Blood Glucose 299H Height (Feet): 5 Height (Inches): 2.00 Weight (Pounds): 156 General Appearance: no apparent distress Neck: normal alignment Cardiovascular: normal rate Respiratory/Chest: lungs clear Abdomen: normal bowel sounds Pelvis: normal external exam Objective Current Medications Medications (Trade) Dose Ordered Sig/Kwabena Route PRN Reason Start Time Stop Time Status Last Admin Dose Admin Amlodipine Besylate (Norvasc) 10 mg DAILY ORAL 12/16/19 09:00 01/15/20 08:59 12/17/19 08:48 Aspirin (Ecotrin) 81 mg DAILY ORAL 12/16/19 09:00 01/30/20 08:59 12/17/19 08:46 Atorvastatin Calcium (Lipitor) 40 mg BEDTIME ORAL 12/15/19 21:00 03/14/20 20:59 12/17/19 20:23 Clonidine HCl (Catapres Tab) 0.1 mg EVERY 2 HOURS PRN ORAL For High Blood Pressure 12/17/19 18:45 03/16/20 18:44 12/17/19 20:23 Dextrose (Dextrose 50%) 25 ml Q30M PRN IV Hypoglycemia 12/16/19 23:45 03/15/20 23:44 Dextrose (Dextrose 50%) 50 ml Q30M PRN IV Hypoglycemia 12/16/19 23:45 03/15/20 23:44 Glipizide (Glucotrol) 5 mg ACBREAKFAST ORAL 12/16/19 06:30 01/15/20 06:29 12/17/19 06:47 Hydrochlorothiazide (Hydrodiuril) 25 mg DAILY ORAL 12/16/19 09:00 01/15/20 08:59 12/17/19 08:48 Insulin Aspart (NovoLOG) BEFORE MEALS AND HS SUBQ 12/17/19 11:30 03/16/20 11:29 12/17/19 20:26 Insulin Aspart (NovoLOG) 10 units NOVOTIAC SUBQ 12/17/19 11:50 03/16/20 11:49 12/17/19 16:40 Insulin Detemir (Levemir) 15 units Q12HR SUBQ 12/18/19 09:00 03/16/20 08:59 Isosorbide Mononitrate (Imdur) 30 mg DAILY ORAL 12/16/19 09:00 01/15/20 08:59 12/17/19 08:47 Labetalol HCl (Normodyne) 200 mg TID ORAL 12/18/19 09:00 01/14/20 20:59 Lisinopril (PriniviL) 20 mg DAILY ORAL 12/16/19 09:00 01/15/20 08:59 12/17/19 08:47 Morphine Sulfate (Morphine Sulfate) 1 mg Q6H PRN IVP CP 12/15/19 17:00 12/22/19 16:59 Nicotine (Nicoderm) 1 patch Q24H TDERMAL 12/16/19 09:00 03/15/20 08:59 Nitroglycerin (Ntg) 0.4 mg Q5M PRN SL Prn Chest Pain 12/15/19 17:00 01/14/20 16:59 Ondansetron HCl (Zofran) 4 mg Q4H PRN IM Nausea & Vomiting 12/15/19 17:00 01/14/20 16:59 Regadenoson (Lexiscan) 0.4 mg ONCE PRN IV stress test 12/16/19 15:15 12/18/19 15:14 Sitagliptin Phosphate (Januvia) 100 mg DAILY ORAL 12/16/19 09:00 01/15/20 08:59 12/17/19 08:46 Zolpidem Tartrate (Ambien) 5 mg HSPRN PRN ORAL Insomnia 12/17/19 21:15 12/24/19 21:14 12/17/19 22:19 Jose Gracia MD Dec 18, 2019 06:50
--- NOTE | 2019-12-18 07:15 | Consultation ---
DATE OF CONSULTATION: 12/16/2019 ENDOCRINOLOGY CONSULTATION CONSULTING PHYSICIAN: Eliseo Nash MD REFERRING PHYSICIAN: Bry Sam MD REASON FOR CONSULTATION: I was asked to see this 59-year-old Welsh female, referred by Dr. Bry Sam in Endocrinology consultation and management of type 2 diabetes mellitus, out of control. . 30 units of Levemir daily at home but 12 units of NovoLog subcutaneous. . FAMILY HISTORY: Unable to be determined. PERSONAL HISTORY: Unable to be determined. REVIEW OF SYSTEMS: Unable to be determined. PHYSICAL EXAMINATION: GENERAL: In no acute distress. VITAL SIGNS: Blood pressure 165/63, pulse 72, respiratory rate 18, and temperature . HEAD AND NECK: Unremarkable. No jugular venous distention. LUNGS: Clear. CARDIOVASCULAR: Heart sounds irregular. ABDOMEN: Soft. Bowel sounds are present. EXTREMITIES: No edema. NEUROLOGIC: Cranial nerves II through XII are grossly intact with toes downgoing to plantar stimulation. LABORATORY DATA: Glucose 97. Troponin is normal. ASSESSMENT AND PLAN: in good control. . Dizziness etiology unclear. The patient will be started on Levemir 15 units q.12h. Novolog . Eliseo Nash M.D. DR: Corry JOB#: [id number] CC:
[2019-12-18 08:00] VITALS: BP 166/66
[2019-12-18] MEDS: GlipiZIDE 5mg tab ORAL SCH (08:41)
[2019-12-18] MEDS: Aspirin EC 81mg tab ORAL SCH (09:07)
[2019-12-18] MEDS: hydroCHLOROthiazide 25mg cap ORAL SCH (09:07)
[2019-12-18] MEDS: Imdur 30mg tab ORAL SCH (09:07)
[2019-12-18] MEDS: Lisinopril 20mg tab ORAL SCH (09:07)
[2019-12-18] MEDS: Levemir Flexpen SUBQ SCH ×2 (09:14→20:14)
[2019-12-18 09:20] LABS: BASOPHILS % (AUTO) 0.8 % (0.0-2.0); EOSINOPHILS % (AUTO) 2.9 % (0.0-3.0); HEMATOCRIT 43.1 % (37.0-47.0); HEMOGLOBIN 14.5 G/DL (12.0-16.0); LYMPHOCYTES % (AUTO) 33.3 % (20.0-45.0); MEAN CORPUSCULAR VOLUME 93 FL (80-99); MONOCYTES % (AUTO) 8.1 % (1.0-10.0); NEUTROPHILS % (AUTO) 54.8 % (45.0-75.0); PLATELET COUNT 220 K/UL (150-450); RED BLOOD COUNT 4.61 M/UL (4.20-5.40); RED CELL DISTRIBUTION WIDTH 12.8 % (11.6-14.8); WHITE BLOOD COUNT 7.2 K/UL (4.8-10.8)
[2019-12-18 09:50] LABS: ANION GAP 13 mmol/L (5-15); BLOOD UREA NITROGEN 14 mg/dL (7-18); CALCIUM 8.6 MG/DL (8.5-10.1); CARBON DIOXIDE 24 MMOL/L (21-32); CHLORIDE 106 MMOL/L (98-107); CREATININE 0.6 MG/DL (0.55-1.30); POTASSIUM 4.2 MMOL/L (3.5-5.1); SODIUM 143 MMOL/L (136-145)
--- NOTE | 2019-12-18 10:16 | Pulmonology Progress Note ---
Tariq Vargheseet SEWER HAND 12/18/19 1016: Subjective ROS Limited/Unobtainable: Yes Allergies: Coded Allergies: No Known Allergies (Unverified , 01/20/16) All Systems: reviewed and negative except above Subjective denies CP, SOB no palpitations, less dizziness on RA sat stable stress test pending for am BS better Objective Last 24 Hour Vital Signs Date Time Temp Pulse Resp B/P (MAP) Pulse Ox O2 Delivery O2 Flow Rate FiO2 12/18/19 09:08 63 175/79 12/18/19 09:08 63 175/79 12/18/19 09:07 175/79 12/18/19 09:07 175/79 12/18/19 08:00 97.6 56 20 166/66 (99) 97 12/18/19 08:00 56 12/18/19 04:00 53 12/18/19 04:00 98.0 52 20 165/69 (101) 95 12/18/19 00:00 60 12/18/19 00:00 98.0 61 20 165/68 (100) 95 12/17/19 21:00 Room Air 12/17/19 20:23 173/60 12/17/19 20:00 61 12/17/19 19:50 69 20 169/68 (101) 12/17/19 19:45 97.5 63 20 173/60 (97) 95 12/17/19 16:30 70 158/70 (99) 12/17/19 16:00 98.1 61 20 167/71 (103) 94 12/17/19 12:00 97.9 60 20 168/68 (101) 96 12/17/19 12:00 60 Intake and Output 12/17/19 12/18/19 19:00 07:00 Intake Total 960 ml Balance 960 ml Intake Oral 960 ml # Voids 6 # Bowel Movements 1 General Appearance: no acute distress, other - A/A/O x 4 Koreaan speaking overweight female in NAD HEENT: normocephalic, atraumatic, anicteric, mucous membranes moist Respiratory: lungs clear, no respiratory distress, no accessory muscle use Cardiovascular: normal rate, regular rhythm Abdomen: soft, non tender - obese Extremities: no edema, pedal pulses normal Neurologic: alert, oriented x 3, responsive Musculoskeletal: normal muscle bulk Laboratory Tests 12/17/19 16:16: POC Whole Blood Glucose 320H 12/17/19 19:59: POC Whole Blood Glucose 299H 12/18/19 07:09: POC Whole Blood Glucose 271H 12/18/19 07:35: White Blood Count 7.2, Red Blood Count 4.61, Hemoglobin 14.5, Hematocrit 43.1, Mean Corpuscular Volume 93, Mean Corpuscular Hemoglobin 31.5H, Mean Corpuscular Hemoglobin Concent 33.7, Red Cell Distribution Width 12.8, Platelet Count 220, Mean Platelet Volume 8.1, Neutrophils (%) (Auto) 54.8, Lymphocytes (%) (Auto) 33.3, Monocytes (%) (Auto) 8.1, Eosinophils (%) (Auto) 2.9, Basophils (%) (Auto ) 0.8, Sodium Level 143, Potassium Level 4.2, Chloride Level 106, Carbon Dioxide Level 24, Anion Gap 13, Blood Urea Nitrogen 14, Creatinine 0.6, Estimat Glomerular Filtration Rate > 60, Glucose Level 280H, Calcium Level 8.6 Current Medications Medications (Trade) Dose Ordered Sig/K[place]bena Route PRN Reason Start Time Stop Time Status Last Admin Dose Admin Amlodipine Besylate (Norvasc) 10 mg DAILY ORAL 12/16/19 09:00 01/15/20 08:59 12/18/19 09:08 Aspirin (Ecotrin) 81 mg DAILY ORAL 12/16/19 09:00 01/30/20 08:59 12/18/19 09:07 Atorvastatin Calcium (Lipitor) 40 mg BEDTIME ORAL 12/15/19 21:00 03/14/20 20:59 12/17/19 20:23 Clonidine HCl (Catapres Tab) 0.1 mg EVERY 2 HOURS PRN ORAL For High Blood Pressure 12/17/19 18:45 03/16/20 18:44 12/17/19 20:23 Dextrose (Dextrose 50%) 25 ml Q30M PRN IV Hypoglycemia 12/16/19 23:45 03/15/20 23:44 Dextrose (Dextrose 50%) 50 ml Q30M PRN IV Hypoglycemia 12/16/19 23:45 03/15/20 23:44 Glipizide (Glucotrol) 5 mg ACBREAKFAST ORAL 12/16/19 06:30 01/15/20 06:29 12/18/19 08:41 Hydrochlorothiazide (Hydrodiuril) 25 mg DAILY ORAL 12/16/19 09:00 01/15/20 08:59 12/18/19 09:07 Insulin Aspart (NovoLOG) BEFORE MEALS AND HS SUBQ 12/17/19 11:30 03/16/20 11:29 12/17/19 20:26 Insulin Aspart (NovoLOG) 10 units NOVOTIAC SUBQ 12/17/19 11:50 03/16/20 11:49 12/17/19 16:40 Insulin Detemir (Levemir) 15 units Q12HR SUBQ 12/18/19 09:00 03/16/20 08:59 12/18/19 09:14 Isosorbide Mononitrate (Imdur) 30 mg DAILY ORAL 12/16/19 09:00 01/15/20 08:59 12/18/19 09:07 Labetalol HCl (Normodyne) 200 mg TID ORAL 12/18/19 09:00 01/14/20 20:59 12/18/19 09:08 Lisinopril (PriniviL) 20 mg DAILY ORAL 12/16/19 09:00 01/15/20 08:59 12/18/19 09:07 Morphine Sulfate (Morphine Sulfate) 1 mg Q6H PRN IVP CP 12/15/19 17:00 12/22/19 16:59 Nicotine (Nicoderm) 1 patch Q24H TDERMAL 12/16/19 09:00 03/15/20 08:59 12/18/19 09:07 Nitroglycerin (Ntg) 0.4 mg Q5M PRN SL Prn Chest Pain 12/15/19 17:00 01/14/20 16:59 Ondansetron HCl (Zofran) 4 mg Q4H PRN IM Nausea & Vomiting 12/15/19 17:00 01/14/20 16:59 Regadenoson (Lexiscan) 0.4 mg ONCE PRN IV stress test 12/16/19 15:15 12/18/19 15:14 12/18/19 09:49 Sitagliptin Phosphate (Januvia) 100 mg DAILY ORAL 12/16/19 09:00 01/15/20 08:59 12/18/19 09:06 Zolpidem Tartrate (Ambien) 5 mg HSPRN PRN ORAL Insomnia 12/17/19 21:15 12/24/19 21:14 12/17/19 22:19 Assessment/Plan Assessment/Plan ASSESSMENT: * Dizziness-resolved * Atypical CP with ECG changes * DM2 with elevated BS/ DM OOC * HTN with initial HTN urgency * HLD * Likely CAD and CHF * Current daily smoker PLAN: * tele * serial troponin x2 negative, * ECHO with pEF and mild pulm HTN * cardiology eval appreciated * Continue a/HTN regimen, LA nitrite , statin : Labetalol, Norvasc, HCTZ, Imdur , Atorvastatin, Lisinopril, Labetalol- BP improving, optimize further as needed * lipid panel with TG 261, LDL 110, on statin * PRN NTG * PRN MSO4 * Carotid duplex -> no significant stenosis * Neuro eval (if available) * orthostatics only done once 1m 12/15 + systolic BP orthostatic changes * endo eval appreciated * now on Levemir, SA ac insulin and SSI , also oral Glipizide and Januvia ; metformin on hold - * diabetic diet and teaching ( dietary eval ordered) * check HgA1c - 10.3 * monitor volumes and renal function * DVT Px: Hep SQ * 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 BP control Awaiting stress testing BS control Cayla Varghese NP Dec 18, 2019 10:16 Bry Sam MD Dec 18, 2019 10:52
--- NOTE | 2019-12-18 11:13 | NUR ---
NURSE HAND-OFF REPORT: Important Events on Shift: Patient Status: Diet: PT seeing patient, taking orthostatic vitals elevated BP lexiscan done Pending Orders: Pending Results/Labs: Pending MD notification: Latest Vital Signs: Temperature 97.6 , Pulse 63 , B/P 175 /79 , Respiratory Rate 20 , O2 SAT 97 , Room Air, O2 Flow Rate . Vital Sign Comment: EKG Rhythm: Sinus Bradycardia Rhythm change?: N MD Notified?: N - MD Response: Latest Lim Fall Score: 55 Fall Risk: High Risk Safety Measures: Call light Within Reach, Bed Alarm Zone 2, Side Rails Side Rails x3, Bed position Low and Locked. Fall Precautions: Yellow Socks Yellow Gown Door Sign Patient Fall Education Report given to Raphael Sheridan.
[2019-12-18 12:00] VITALS: BP 149/57
--- NOTE | 2019-12-18 12:20 | NUR ---
CASE MANAGEMENT: REVIEW SI: CHEST PAIN w/T-WAVE INVERSION . DIZZINESS T 97.6 HR 52 RR 20 BP 175/79 SAT 97% ROOM AIR GLUCOSE 280 IS: ISOSORBIDE PO QD ECOTRIN PO QD LABETALOL PO TID LEXISCAN X1 TELEMETRY UNIT STATUS DCP: PATIENT IS FROM HOME
--- NOTE | 2019-12-18 12:26 | NUR ---
INSURANCE CLINICALS AND REVIEWS HAVE BEEN FAXED TO / [facility] P: [phone] F: [phone]
--- NOTE | 2019-12-18 12:27 | NUR ---
NURSE NOTES:Left a message for Dr Gracia regarding patients critical glucose level. awaiting call back.
--- NOTE | 2019-12-18 13:19 | NUR ---
NURSE NOTES: MD Medeiros aware of patient glucose result. no new orders at this time.
--- NOTE | 2019-12-18 13:46 | NUR ---
NURSE NOTES:Patient asking for snacks and orange juice. Informed patient that she cannot have orange juice as her blood sugars are too high, explained that patient needs to avoid high sugar foods. Called dietary to request diet soda and a snack for patient.
--- NOTE | 2019-12-18 14:11 | Cardiac Electrophysiology PN ---
Assessment/Plan Assessment/Plan 1. Chest pain with T-wave inversion in lateral leads. She is already ruled out for myocardial infarction. I do not know if the EKG changes are new or old. Had stress test today. Results pending Echocardiogram showed EF 60% to 65% with moderate aortic regurgitation. 2. Hypertension. On amlodipine 10 mg daily, HCTZ 25 mg daily, lisinopril 20 mg daily, Imdur 30 mg daily, labetalol 200 mg tid and prn Cloniodine 3. Hyperlipidemia. On Lipitor. 4. Uncontrolled diabetes. Her blood sugar was 337 on admission. Currently, on Januvia and insulin. 5. Dizziness, on meclizine. MANJIT RN Subjective Subjective Feeling better. No CP or SOB.Had stress test today. Results pending Objective Last 24 Hour Vital Signs Date Time Temp Pulse Resp B/P (MAP) Pulse Ox O2 Delivery O2 Flow Rate FiO2 12/18/19 12:11 128/62 12/18/19 12:00 62 12/18/19 12:00 96.7 63 19 149/57 (87) 96 12/18/19 09:08 63 175/79 12/18/19 09:08 63 175/79 12/18/19 09:07 175/79 12/18/19 09:07 175/79 12/18/19 09:00 Room Air 12/18/19 08:00 97.6 56 20 166/66 (99) 97 12/18/19 08:00 56 12/18/19 04:00 53 12/18/19 04:00 98.0 52 20 165/69 (101) 95 12/18/19 00:00 60 12/18/19 00:00 98.0 61 20 165/68 (100) 95 12/17/19 21:00 Room Air 12/17/19 20:23 173/60 12/17/19 20:00 61 12/17/19 19:50 69 20 169/68 (101) 12/17/19 19:45 97.5 63 20 173/60 (97) 95 12/17/19 16:30 70 158/70 (99) 12/17/19 16:00 98.1 61 20 167/71 (103) 94 Intake and Output 12/17/19 12/18/19 19:00 07:00 Intake Total 960 ml Balance 960 ml Intake Oral 960 ml # Voids 6 # Bowel Movements 1 Laboratory Tests Test 12/17/19 16:16 12/17/19 19:59 12/18/19 07:09 12/18/19 07:35 POC Whole Blood Glucose 320 MG/DL (74-106) H 299 MG/DL (74-106) H 271 MG/DL (74-106) H White Blood Count 7.2 K/UL (4.8-10.8) Red Blood Count 4.61 M/UL (4.20-5.40) Hemoglobin 14.5 G/DL (12.0-16.0) Hematocrit 43.1 % (37.0-47.0) Mean Corpuscular Volume 93 FL (80-99) Mean Corpuscular Hemoglobin 31.5 PG (27.0-31.0) H Mean Corpuscular Hemoglobin Concent 33.7 G/DL (32.0-36.0) Red Cell Distribution Width 12.8 % (11.6-14.8) Platelet Count 220 K/UL (150-450) Mean Platelet Volume 8.1 FL (6.5-10.1) Neutrophils (%) (Auto) 54.8 % (45.0-75.0) Lymphocytes (%) (Auto) 33.3 % (20.0-45.0) Monocytes (%) (Auto) 8.1 % (1.0-10.0) Eosinophils (%) (Auto) 2.9 % (0.0-3.0) Basophils (%) (Auto) 0.8 % (0.0-2.0) Sodium Level 143 MMOL/L (136-145) Potassium Level 4.2 MMOL/L (3.5-5.1) Chloride Level 106 MMOL/L (98-107) Carbon Dioxide Level 24 MMOL/L (21-32) Anion Gap 13 mmol/L (5-15) Blood Urea Nitrogen 14 mg/dL (7-18) Creatinine 0.6 MG/DL (0.55-1.30) Estimat Glomerular Filtration Rate > 60 mL/min (>60) Glucose Level 280 MG/DL (74-106) H Calcium Level 8.6 MG/DL (8.5-10.1) Objective HEAD AND NECK: No jugular venous distention. LUNGS: Clear. CARDIOVASCULAR: Shows regular S1 and S2 with no gallop or murmur. ABDOMEN: Soft. EXTREMITIES: No pitting edema. Satya Garcia MD Dec 18, 2019 14:11
--- NOTE | 2019-12-18 14:20 | Diagnostic Imaging Report ---
Indications: Chest pain Technique: See cardiology report for details of LexiScan stress testing. During LexiScan infusion, IV administration 10.3 mCi 99 M technetium Myoview. SPECT and planar images obtained. SPECT images gated to 8 phases of the cardiac cycle were also obtained, and reformatted into cine images for evaluation of ejection fraction. On the subsequent day, resting images obtained using IV administration 32 mCi 99 M technetium Myoview. Comparison:none Findings: Clinical response to pharmacologic stress was reported as nonischemic. Electrocardiographic response to pharmacologic stress was reported as nonischemic. Imaging demonstrates no fixed or reversible perfusion defect. Ejection fraction estimated at 71%. IMPRESSION: No fixed or reversible perfusion defect. EF estimated at 71%.
[2019-12-18 16:00] VITALS: BP 132/79
--- NOTE | 2019-12-18 18:26 | NUR ---
NURSE NOTES:dropped 100mg labetalol on the floor, wasted in the Pyxus. Called pharmacy and they gave me another 100mg tablet so that patient can receive the full 200mg dose of Labetalol.
--- NOTE | 2019-12-18 19:32 | NUR ---
NURSE HAND-OFF REPORT: Important Events on Shift:patient had Lexiscan Patient Status: Diet: CCHO (M) cardiac Pending Orders: Pending Results/Labs: Pending MD notification: Latest Vital Signs: Temperature 97.9 , Pulse 63 , B/P 132 /79 , Respiratory Rate 20 , O2 SAT 96 , Room Air, O2 Flow Rate . Vital Sign Comment: EKG Rhythm: Sinus Rhythm Rhythm change?: N MD Notified?: N - MD Response: Latest Lim Fall Score: 55 Fall Risk: High Risk Safety Measures: Call light Within Reach, Bed Alarm Zone 2, Side Rails Side Rails x3, Bed position Low and Locked. Fall Precautions: Yellow Socks Yellow Gown Door Sign yes Patient Fall Education Report given to BRIGHT Bernal
[2019-12-18 20:00] VITALS: BP 160/78
[2019-12-18] MEDS: Zolpidem 5mg tab ORAL PRN (20:13)
[2019-12-18] MEDS: Atorvastatin 20mg tab ORAL SCH (20:13)
--- NOTE | 2019-12-18 20:49 | NUR ---
NURSE NOTES: Received patient in bed, awake, alert, oriented x4, speaks Slovak and Mohawk, ambulatory with steady gate, IV site is clean dry and intact. Call light is within reach, bed is lowered, locked and alarm is on, will continue to monitor for comfort and safety.
[2019-12-19] VITALS: BP 148/76
[2019-12-19 04:00] VITALS: BP 145/72
[2019-12-19] MEDS: GlipiZIDE 5mg tab ORAL SCH (05:40)
[2019-12-19] MEDS: NovoLOG Insulin Flexpen SUBQ SCH ×3 (05:41→11:28)
--- NOTE | 2019-12-19 06:20 | General Progress Note ---
Assessment/Plan Problem List: (1) Hypertension ICD Codes: I10 - Essential (primary) hypertension SNOMED: 60070272 (2) Diabetes ICD Codes: E11.9 - Type 2 diabetes mellitus without complications SNOMED: 94190573 (3) Anxiety ICD Codes: F41.9 - Anxiety disorder, unspecified SNOMED: 63360759 (4) Dizziness ICD Codes: R42 - Dizziness and giddiness SNOMED: 410948670, 449879043 Assessment/Plan: increase Levemir to 24 units bid increase Novolog to 16 units ac tid continue Januvia and Glipizide as is continue Novolog sliding scale ac / hs continue to hold Metformin in expectation of possible contrast exposure Subjective Allergies: Coded Allergies: No Known Allergies (Unverified , 01/20/16) Subjective events noted and interval notes reviewed glucose values continues to run high despite receiving all the scheduled insulin Item Value Date Time Bedside Blood Glucose 382 mg/dl H 12/19/19 0548 Bedside Blood Glucose 360 mg/dl H 12/18/19 1609 Bedside Blood Glucose 451 mg/dl H 12/18/19 1215 Bedside Blood Glucose 271 mg/dl H 12/18/19 0914 Bedside Blood Glucose 271 mg/dl H 12/18/19 0630 Objective Last 24 Hour Vital Signs Date Time Temp Pulse Resp B/P (MAP) Pulse Ox O2 Delivery O2 Flow Rate FiO2 12/19/19 04:00 98.3 68 18 145/72 (96) 94 12/19/19 04:00 63 12/19/19 00:00 66 12/19/19 00:00 97.7 65 18 148/76 (100) 95 12/18/19 21:11 Room Air 12/18/19 20:00 97.8 78 18 160/78 (105) 98 12/18/19 18:21 63 132/79 12/18/19 16:00 97.9 59 20 132/79 (96) 96 12/18/19 16:00 63 12/18/19 12:11 128/62 12/18/19 12:00 62 12/18/19 12:00 96.7 63 19 149/57 (87) 96 12/18/19 09:08 63 175/79 12/18/19 09:08 63 175/79 12/18/19 09:07 175/79 12/18/19 09:07 175/79 9/14/20 09:00 Room Air 12/18/19 08:00 97.6 56 20 166/66 (99) 97 12/18/19 08:00 56 Intake and Output 12/18/19 12/19/19 19:00 07:00 Intake Total 480 ml Balance 480 ml Intake Oral 480 ml # Voids 3 # Bowel Movements 1 Laboratory Tests 12/18/19 07:09: POC Whole Blood Glucose 271H 12/18/19 07:35: White Blood Count 7.2, Red Blood Count 4.61, Hemoglobin 14.5, Hematocrit 43.1, Mean Corpuscular Volume 93, Mean Corpuscular Hemoglobin 31.5H, Mean Corpuscular Hemoglobin Concent 33.7, Red Cell Distribution Width 12.8, Platelet Count 220, Mean Platelet Volume 8.1, Neutrophils (%) (Auto) 54.8, Lymphocytes (%) (Auto) 33.3, Monocytes (%) (Auto) 8.1, Eosinophils (%) (Auto) 2.9, Basophils (%) (Auto ) 0.8, Sodium Level 143, Potassium Level 4.2, Chloride Level 106, Carbon Dioxide Level 24, Anion Gap 13, Blood Urea Nitrogen 14, Creatinine 0.6, Estimat Glomerular Filtration Rate > 60, Glucose Level 280H, Calcium Level 8.6 12/18/19 15:57: POC Whole Blood Glucose 340H Height (Feet): 5 Height (Inches): 2.00 Weight (Pounds): 156 General Appearance: no apparent distress Neck: normal alignment Cardiovascular: normal rate Respiratory/Chest: lungs clear Abdomen: normal bowel sounds Pelvis: normal external exam Objective Current Medications Medications (Trade) Dose Ordered Sig/[place] Route PRN Reason Start Time Stop Time Status Last Admin Dose Admin Amlodipine Besylate (Norvasc) 10 mg DAILY ORAL 12/16/19 09:00 01/15/20 08:59 12/18/19 09:08 Aspirin (Ecotrin) 81 mg DAILY ORAL 12/16/19 09:00 01/30/20 08:59 12/18/19 09:07 Atorvastatin Calcium (Lipitor) 40 mg BEDTIME ORAL 12/15/19 21:00 03/14/20 20:59 12/18/19 20:13 Clonidine HCl (Catapres Tab) 0.1 mg EVERY 2 HOURS PRN ORAL For High Blood Pressure 12/17/19 18:45 03/16/20 18:44 12/17/19 20:23 Dextrose (Dextrose 50%) 25 ml Q30M PRN IV Hypoglycemia 12/16/19 23:45 03/15/20 23:44 Dextrose (Dextrose 50%) 50 ml Q30M PRN IV Hypoglycemia 12/16/19 23:45 03/15/20 23:44 Glipizide (Glucotrol) 5 mg ACBREAKFAST ORAL 12/16/19 06:30 01/15/20 06:29 12/19/19 05:40 Hydrochlorothiazide (Hydrodiuril) 25 mg DAILY ORAL 12/16/19 09:00 01/15/20 08:59 12/18/19 09:07 Insulin Aspart (NovoLOG) BEFORE MEALS AND HS SUBQ 12/17/19 11:30 03/16/20 11:29 12/19/19 05:42 Insulin Aspart (NovoLOG) 10 units NOVOTIAC SUBQ 12/17/19 11:50 03/16/20 11:49 12/19/19 05:41 Insulin Detemir (Levemir) 15 units Q12HR SUBQ 12/18/19 09:00 03/16/20 08:59 12/18/19 20:14 Isosorbide Mononitrate (Imdur) 30 mg DAILY ORAL 12/16/19 09:00 01/15/20 08:59 12/18/19 09:07 Labetalol HCl (Normodyne) 200 mg TID ORAL 12/18/19 09:00 01/14/20 20:59 12/18/19 18:21 Lisinopril (PriniviL) 20 mg DAILY ORAL 12/16/19 09:00 01/15/20 08:59 12/18/19 09:07 Morphine Sulfate (Morphine Sulfate) 1 mg Q6H PRN IVP CP 12/15/19 17:00 12/22/19 16:59 Nicotine (Nicoderm) 1 patch Q24H TDERMAL 12/16/19 09:00 03/15/20 08:59 12/18/19 09:07 Nitroglycerin (Ntg) 0.4 mg Q5M PRN SL Prn Chest Pain 12/15/19 17:00 01/14/20 16:59 Ondansetron HCl (Zofran) 4 mg Q4H PRN IM Nausea & Vomiting 12/15/19 17:00 01/14/20 16:59 Sitagliptin Phosphate (Januvia) 100 mg DAILY ORAL 12/16/19 09:00 01/15/20 08:59 12/18/19 09:06 Zolpidem Tartrate (Ambien) 5 mg HSPRN PRN ORAL Insomnia 12/17/19 21:15 12/24/19 21:14 12/18/19 20:13 Jose Gracia MD Dec 19, 2019 06:19
[2019-12-19] MEDS ORDERED: NovoLOG Insulin Flexpen SUBQ SCH ×2 (06:30→11:50)
--- NOTE | 2019-12-19 07:19 | NUR ---
NURSE HAND-OFF REPORT: Important Events on Shift:BS monitoring Patient Status:stable Diet:CCHO med, cardiac soft Pending Orders: Pending Results/Labs: Pending MD notification: Latest Vital Signs: Temperature 98.3 , Pulse 68 , B/P 145 /72 , Respiratory Rate 18 , O2 SAT 94 , Room Air, O2 Flow Rate . Vital Sign Comment: EKG Rhythm: Sinus Rhythm Rhythm change?: N MD Notified?: N - MD Response: Latest Lim Fall Score: 55 Fall Risk: High Risk Safety Measures: Call light Within Reach, Bed Alarm Zone 2, Side Rails Side Rails x3, Bed position Low and Locked. Fall Precautions: Yellow Socks Yellow Gown Door Sign Patient Fall Education Report given to Raphael NOVOA
--- NOTE | 2019-12-19 07:27 | NUR ---
NURSE NOTES:handoff received from BRIGHT Rene. Patient [id number] Addendum: 12/19/19 at 0729 by Raphael Sheridan RN awake and alert and resting in bed, no acute signs of distress noted. Patient is on room air, with bed in the low and locked position with call light within reach. No complaints at this time. will continue to monitor patient.
[2019-12-19 08:00] VITALS: BP 116/74
[2019-12-19] MEDS ORDERED: Levemir Flexpen SUBQ SCH (09:00)
--- NOTE | 2019-12-19 09:21 | Cardiac Electrophysiology PN ---
Assessment/Plan Assessment/Plan 1. Chest pain with T-wave inversion in lateral leads. She is already ruled out for myocardial infarction. I do not know if the EKG changes are new or old. Had stress test that shwoed no ischemia or scar Echocardiogram showed EF 60% to 65% with moderate aortic regurgitation. 2. Hypertension. On amlodipine 10 mg daily, HCTZ 25 mg daily, lisinopril 20 mg daily, Imdur 30 mg daily, labetalol 200 mg tid and prn Cloniodine 3. Hyperlipidemia. On Lipitor. 4. Uncontrolled diabetes. Her blood sugar was 337 on admission. Currently, on Januvia and insulin. 5. Dizziness, on meclizine. DW RN OK to DC Subjective Subjective Feeling better. No CP or SOB.Had stress test that showed no ischemia or scar Objective Last 24 Hour Vital Signs Date Time Temp Pulse Resp B/P (MAP) Pulse Ox O2 Delivery O2 Flow Rate FiO2 12/19/19 04:00 98.3 68 18 145/72 (96) 94 12/19/19 04:00 63 12/19/19 00:00 66 12/19/19 00:00 97.7 65 18 148/76 (100) 95 12/18/19 21:11 Room Air 12/18/19 20:00 97.8 78 18 160/78 (105) 98 12/18/19 18:21 63 132/79 12/18/19 16:00 97.9 59 20 132/79 (96) 96 12/18/19 16:00 63 12/18/19 12:11 128/62 12/18/19 12:00 62 12/18/19 12:00 96.7 63 19 149/57 (87) 96 Intake and Output 12/18/19 12/19/19 19:00 07:00 Intake Total 480 ml Balance 480 ml Intake Oral 480 ml # Voids 3 # Bowel Movements 1 Laboratory Tests Test 12/18/19 15:57 POC Whole Blood Glucose 340 MG/DL (74-106) H Objective HEAD AND NECK: No jugular venous distention. LUNGS: Clear. CARDIOVASCULAR: Shows regular S1 and S2 with no gallop or murmur. ABDOMEN: Soft. EXTREMITIES: No pitting edema. Satya Garcia MD Dec 19, 2019 09:21
[2019-12-19] MEDS: hydroCHLOROthiazide 25mg cap ORAL SCH (09:50)
[2019-12-19] MEDS: Aspirin EC 81mg tab ORAL SCH (09:51)
[2019-12-19] MEDS: Imdur 30mg tab ORAL SCH (09:51)
[2019-12-19] MEDS: Lisinopril 20mg tab ORAL SCH (09:51)
--- NOTE | 2019-12-19 10:36 | Pulmonology Progress Note ---
Cayla Varghese SUPERVISOR BELT AND LINK ASSEMBLY 12/19/19 1036: Subjective ROS Limited/Unobtainable: Yes Allergies: Coded Allergies: No Known Allergies (Unverified , 01/20/16) All Systems: reviewed and negative except above Subjective denies CP, SOB no palpitations, feeling better, no dizziness on RA sat stable stress test doene 12/17 no fixed or reversible defect noted BS better Objective Last 24 Hour Vital Signs Date Time Temp Pulse Resp B/P (MAP) Pulse Ox O2 Delivery O2 Flow Rate FiO2 12/19/19 09:51 64 116/74 12/19/19 09:51 116/74 12/19/19 09:51 116/74 12/19/19 09:51 64 116/74 12/19/19 09:00 Room Air Room Air 12/19/19 08:00 98.0 64 20 116/74 (88) 100 12/19/19 04:00 98.3 68 18 145/72 (96) 94 12/19/19 04:00 63 12/19/19 00:00 66 12/19/19 00:00 97.7 65 18 148/76 (100) 95 12/18/19 21:11 Room Air 12/18/19 20:00 97.8 78 18 160/78 (105) 98 12/18/19 18:21 63 132/79 12/18/19 16:00 97.9 59 20 132/79 (96) 96 12/18/19 16:00 63 12/18/19 12:11 128/62 12/18/19 12:00 62 12/18/19 12:00 96.7 63 19 149/57 (87) 96 Intake and Output 12/18/19 12/19/19 19:00 07:00 Intake Total 480 ml Balance 480 ml Intake Oral 480 ml # Voids 3 # Bowel Movements 1 General Appearance: no acute distress, other - A/A/O x 4 Koreaan speaking overweight female in NAD HEENT: normocephalic, atraumatic, anicteric, mucous membranes moist Respiratory: lungs clear, no respiratory distress, no accessory muscle use Cardiovascular: normal rate, regular rhythm Abdomen: soft, non tender - obese Extremities: no edema, pedal pulses normal Neurologic: alert, oriented x 3, responsive Musculoskeletal: normal muscle bulk Laboratory Tests 12/18/19 12:14: POC Whole Blood Glucose [Pending] 12/18/19 15:57: POC Whole Blood Glucose 340H 12/19/19 09:59: POC Whole Blood Glucose 272H Current Medications Medications (Trade) Dose Ordered Sig/[place] Route PRN Reason Start Time Stop Time Status Last Admin Dose Admin Amlodipine Besylate (Norvasc) 10 mg DAILY ORAL 12/16/19 09:00 01/15/20 08:59 12/19/19 09:51 Aspirin (Ecotrin) 81 mg DAILY ORAL 12/16/19 09:00 01/30/20 08:59 12/19/19 09:51 Atorvastatin Calcium (Lipitor) 40 mg BEDTIME ORAL 12/15/19 21:00 03/14/20 20:59 12/18/19 20:13 Clonidine HCl (Catapres Tab) 0.1 mg EVERY 2 HOURS PRN ORAL For High Blood Pressure 12/17/19 18:45 03/16/20 18:44 12/17/19 20:23 Dextrose (Dextrose 50%) 25 ml Q30M PRN IV Hypoglycemia 12/16/19 23:45 03/15/20 23:44 Dextrose (Dextrose 50%) 50 ml Q30M PRN IV Hypoglycemia 12/16/19 23:45 03/15/20 23:44 Glipizide (Glucotrol) 5 mg ACBREAKFAST ORAL 12/16/19 06:30 01/15/20 06:29 12/19/19 05:40 Hydrochlorothiazide (Hydrodiuril) 25 mg DAILY ORAL 12/16/19 09:00 01/15/20 08:59 12/19/19 09:50 Insulin Aspart (NovoLOG) BEFORE MEALS AND HS SUBQ 12/17/19 11:30 03/16/20 11:29 12/19/19 05:42 Insulin Aspart (NovoLOG) 16 units NOVOTIAC SUBQ 12/19/19 11:50 03/18/20 11:49 Insulin Detemir (Levemir) 24 units Q12HR SUBQ 12/19/19 09:00 03/16/20 08:59 12/19/19 09:00 Isosorbide Mononitrate (Imdur) 30 mg DAILY ORAL 12/16/19 09:00 01/15/20 08:59 12/19/19 09:51 Labetalol HCl (Normodyne) 200 mg TID ORAL 12/18/19 09:00 01/14/20 20:59 12/19/19 09:51 Lisinopril (PriniviL) 20 mg DAILY ORAL 12/16/19 09:00 01/15/20 08:59 12/19/19 09:51 Morphine Sulfate (Morphine Sulfate) 1 mg Q6H PRN IVP CP 12/15/19 17:00 12/22/19 16:59 Nicotine (Nicoderm) 1 patch Q24H TDERMAL 12/16/19 09:00 03/15/20 08:59 12/19/19 09:52 Nitroglycerin (Ntg) 0.4 mg Q5M PRN SL Prn Chest Pain 12/15/19 17:00 01/14/20 16:59 Ondansetron HCl (Zofran) 4 mg Q4H PRN IM Nausea & Vomiting 12/15/19 17:00 01/14/20 16:59 Sitagliptin Phosphate (Januvia) 100 mg DAILY ORAL 12/16/19 09:00 01/15/20 08:59 12/19/19 09:50 Zolpidem Tartrate (Ambien) 5 mg HSPRN PRN ORAL Insomnia 12/17/19 21:15 12/24/19 21:14 12/18/19 20:13 Assessment/Plan Assessment/Plan ASSESSMENT: * Dizziness-resolved * Atypical CP with ECG changes * DM2 with elevated BS/ DM OOC * HTN with initial HTN urgency * HLD * Likely CAD and CHF * Current daily smoker PLAN: * tele * serial troponin x2 negative, * ECHO with pEF and mild pulm HTN * cardiology eval appreciated * Continue a/HTN regimen, LA nitrite , statin : Labetalol, Norvasc, HCTZ, Imdur, Atorvastatin, Lisinopril, Labetalol- BP improving, optimize further as needed * lipid panel with TG 261, LDL 110, on statin * PRN NTG * PRN MSO4 * stress test no reversible or fixed defect * Carotid duplex -> no significant stenosis * Neuro eval (if available) - not available * orthostatics only done once 1m 12/15 + systolic BP orthostatic changes , [id number] no orthostatic changes * endo eval appreciated * now on Levemir, SA ac insulin and SSI , also oral Glipizide and Januvia ; metformin on hold for possible cardiac cath - * diabetic diet and teaching ( dietary eval ordered) * check HgA1c - 10.3 * monitor volumes and renal function * DVT Px: Hep SQ * head counselor on smoking cessation , started on Nicotine patch * can be dc today, reinforced medication and diet compliance and regular fup with PCP * discussed with cardio and endo * per endo ok to resume Metformin since no cardiac cath planned * patient has at home syringes scripts provided case discussed and evaluated by supervising physician Bry Sam MD 12/19/19 1431: Subjective Allergies: Coded Allergies: No Known Allergies (Unverified , 01/20/16) Assessment/Plan Assessment/Plan Patient seen and examined with SUPERVISOR [employer]INK ASSEMBLY and I agree with the above formulated assessment and plan. Stress test negative d/c planning with home health. Cayla Varghese SUPERVISOR [employer] ASSEMBLY Dec 19, 2019 10:36 Bry Sam MD Dec 19, 2019 14:31
[2019-12-19] MEDS ORDERED: NORMODYNE100 MG ORAL (10:41)
[2019-12-19] MEDS ORDERED: NOVOLOG100 UNITS1 SUBQ (10:49)
[2019-12-19] MEDS ORDERED: GLIPIZIDE5 MG ORAL (10:49)
[2019-12-19] MEDS ORDERED: LEVEMIR FL100 UNIT/1 SUBQ (10:49)
[2019-12-19 12:00] VITALS: BP 154/64
[2019-12-19 12:46] VITALS: BP 154/64
--- NOTE | 2019-12-19 13:30 | NUR ---
NURSE NOTES:Spoke to Jenny child welfare caseworker who stated home health has been arranged for the patient .
--- NOTE | 2019-12-19 13:30 | NUR ---
PT NOTE Patient observed ambulating in hallway with steady gait, no loss of balance. Raphael NOVOA notified.
--- NOTE | 2019-12-19 14:22 | NUR ---
NURSE NOTES:Patient discharged and left stable with Daughter Emilie. Educated Daughter on new medications that have been prescribed for the patient including new blood pressure medications and PO diabetes meds and insulin. Patient's daughter stated that her mother is aware on how to take the insulin. Advised that her mother should be checking her Blood pressure daily and should not take her BP medications if her BP is less than 120, according to the METALLURGICAL ENGINEERING TECHNICIAN instructions. Patient left with prescription for new medications. insurance agency manager stated she will call the daughter today to update her on the home health, that has been arranged for the patient. Patient left with her medications that were stored in pharmacy, IV removed, no bleeding noted. Belongings list signed and accounted for. Patient left ambulatory.
[2019-12-19] MEDS ORDERED: Tubing IV Secondary IV ONE (14:27)
--- NOTE | 2019-12-19 16:38 | NUR ---
*-*DISCHARGE PLANNING*-* PATIENT HAS BEEN REFERRED TO: [facility] P: [phone] S/W IRON, CANNOT ACCEPT THIS PATIENT. [facility] P: [phone] S/W JJ, NOT ABLE TO ACCEPT PATIENT DUE TO INSURANCE.
--- NOTE | 2019-12-19 16:52 | NUR ---
*-*DISCHARGE PLANNING*-* PATIENT HAS BEEN REFERRED TO: [facility] P: [phone]
--- NOTE | 2019-12-20 14:33 | Discharge Summary ---
Discharge Summary Discharge Summary _ DATE OF ADMISSION: 12/15/2019 DATE OF DISCHARGE: 12/19/2019 DISCHARGED BY: Dr. Sam REASON FOR ADMISSION: 59 years old female, active smoker, with past medical history of hypertension, diabetes mellitus type 2, hyperlipidemia, presented with sudden onset of dizziness and vague chest discomfort. In emergency department vital signs were stable , except elevated blood pressure . Pulse oximetry was stable on room air. Laboratory work-up was unremarkable. EKG though demonstrated anterolateral T wave changes. Patient received aspirin and IV enalapril in emergency department and subsequently admitted to telemetry floor for further management. CONSULTANTS: pattern shop supervisor Dr. Bates avionics systems repairer Dr. Gracia [facility]: Patient admitted to telemetry floor. Serial troponin were negative. Echocardiogram revealed preserved ejection fraction and mild pulmonary hypertension. Building Construction Teacher followed. Antihypertensive regimen continued along with long-acting nitrate and statin and consisted of labetalol, Norvasc, hydrochlorothiazide, Imdur, atorvastatin, lisinopril, labetalol. Blood pressure improved with current regimen. Lipid panel revealed triglycerides 261, LDL 110 . Patient already was on statin. Patient was counseled on diabetic low-fat low-cholesterol diet. Nitroglycerin was on board as needed. Pain management was addressed , and pain was controlled. Patient subsequently undergone stress test , which revealed no reversible or fixed defects. Carotid duplex revealed no significant stenosis. Unfortunately unable to obtain neurology evaluation . Orthostatic vital signs revealed mild systolic orthostatic changes initially, but repeated testing revealed no orthostatic changes. Executive Meeting Manager seen and evaluated patient . Patient started on long-acting Levemir, short acting insulin before meals as well as sliding scale of insulin as needed. Patient was also on oral glipizide and Januvia. Metformin initially was on hold for possible cardiac catheterization. Hemoglobin A1c 10.3 , clearly not at goal. Patient was provided with diabetic diet and diabetic teaching. Dietary evaluation was done, and patient received recommendation regarding diabetic diet. Volumes were closely monitored along with renal parameters and electrolytes. DVT prophylaxis with heparin provided. Patient was counseled on smoking cessation. Patient started the nicotine patch. Patient was strongly encouraged compliance with medication regimen and regular follow-up with a primary care provider. Executive Meeting Manager cleared to resume metformin since no cardiac catheterization was planned. Blood pressure improved significantly. Building Construction Teacher cleared patient for discharge as well. Patient clinically stabilized and was ready for discharge home . patient was referred to [facility] for blood pressure and blood sugar management. FINAL DIAGNOSES: DM type 2, out of control /[id number]-01.3 HTN with initial HTN urgency Dizziness-resolved Atypical CP with ECG changes HLD Likely CAD and CHF Current daily smoker DISCHARGE MEDICATIONS: See Medication Reconciliation list. DISCHARGE INSTRUCTIONS: Patient was discharged home with home health services to follow. Follow-up with a primary care provider in 1 week. Cayla Varghese NP Dec 20, 2019 14:33
--- NOTE | 2019-12-20 21:24 | Cardiology Report ---
APPROVED REPORT EXAM: Two-dimensional and M-mode echocardiogram with Doppler and color Doppler. INDICATION Congestive Heart Failure M-Mode DIMENSIONS IVSd1.3 (0.7-1.1cm)Left Atrium (MM)4.0 (1.6-4.0cm) LVDd5.5 (3.5-5.6cm)Aortic Root3.4 (2.0-3.7cm) PWd1.2 (0.7-1.1cm)Aortic Cusp Exc.1.5 (1.5-2.0cm) IVSs1.5 cm LVDs3.5 (2.5-4.0cm) PWs1.6 cm <Conclusion> Normal left ventricular chamber size, systolic function and wall motion . Left ventricular ejection fraction estimated to be 60-65 %. Mild left ventricular hypertrophy by 2-D. Anterior Echo-free space, may be due to pericardial fat or effusion. All other cardiac chamber sizes are within normal limits. Calcification of aortic valve with adequate cusp excursion. Thickened mitral valve leaflets with normal excursion. Mitral annulus and aortic root calcification. Pulmonic valve not well visualized. Normal tricuspid valve structure. IVC at normal size with physiologic collapse. A color flow and spectral Doppler study was performed and revealed: Moderate aortic regurgitation. Mild to moderate mitral regurgitation. Mitral diastolic velocities suggest reduced left ventricular relaxation c/w mild LV diastolic dysfunction (Grade I ). Mild tricuspid regurgitation. Tricuspid systolic velocities suggests peak right ventricular systolic pressure of 44 mmHg,consistent with mild pulmonary hypertension. Pulmonic regurgitation present.
== END 2019-12-19 14:28 | disposition home health service (06) | DRG 199 ==
LOC: EMR 13:18 → EDBEDREQ 18:11 → 2E 18:22
DX: I16.0 Hypertensive urgency (principal); E11.65 Type 2 diabetes mellitus with hyperglycemia; I25.10 Atherosclerotic heart disease of native coronary artery without angina pectoris; I50.9 Heart failure, unspecified; I11.0 Hypertensive heart disease with heart failure; E78.5 Hyperlipidemia, unspecified; F17.200 Nicotine dependence, unspecified, uncomplicated; R07.89 Other chest pain; I35.1 Nonrheumatic aortic (valve) insufficiency
CPT/HCPCS: 36415; 70450; 71045; 76830; 76856; 78452; 80048; 80053; 80061; 81001; 82962; 83036; 84443; 84484; 85025; 85379; 85610; 85730; 93005; 93017; 93306; 93880; 96361; 96365; 97802; 99285; J1815; J2785; S5561